=== PATIENT | male | born 1980 | race African-American/Black ===

== ENCOUNTER 2016-11-02 20:13 | Emergency (ER) | payer OTHER ==
[2016-11-02 20:29] VITALS: RESP 18
[2016-11-02] MEDS ORDERED: SODIUM CHLORIDE 0.9% 1,000 ML IV STA ×2 (20:41→22:07)
--- NOTE | 2016-11-02 20:45 | ED ---
General Adult HPI - General Chief complaint: Chest Pain Stated complaint: Back Pain Time Seen by Provider: 11/02/16 20:32 Source: patient, RN notes reviewed Mode of arrival: ambulatory Limitations: no limitations - History of Present Illness Initial comments: Patient 35-year-old male who presents emergency room today with a chief complaint of right-sided chest pain, back pain over the last 3 days. He does admit that is also been having some cramping sensation in his upper legs bilaterally. Patient states pain seems to be worse with certain movements. She is not tried anything for the pain so. Patient admits that he's had some hot and cold feelings. He states he was sweating last night. Patient admits that is also noticed some shortness breath at times over the last week. Patient denies any recent fever, chills, back pain, abdominal pain, nausea or vomiting, numbness or tingling, dysuria or hematuria, constipation or diarrhea, headaches or visual changes, or any other complaints. - Related Data Home Medications Medication Instructions Recorded Confirmed No Known Home Medications [No 11/02/16 11/02/16 Known Home Medications] Allergies Allergy/AdvReac Type Severity Reaction Status Date / Time No Known Allergies Allergy Verified 11/02/16 20:42 Review of Systems ROS Statement: Those systems with pertinent positive or pertinent negative responses have been documented in the HPI. ROS Other: All systems not noted in ROS Statement are negative. Past Medical History Past Medical History: Asthma Additional Past Medical History / Comment(s): sickle cell trait. History of Any Multi-Drug Resistant Organisms: None Reported Past Surgical History: Orthopedic Surgery Additional Past Surgical History / Comment(s): left hand Past Psychological History: No Psychological Hx Reported Smoking Status: Current every day smoker Past Alcohol Use History: None Reported Past Drug Use History: Marijuana General Exam - General Exam Comments Initial Comments: General: The patient is awake and alert, in no distress, and does not appear acutely ill. Eye: Pupils are equal, round and reactive to light, extra-ocular movements are intact. No nystagmus. There is normal conjunctiva bilaterally. No signs of icterus. Ears, nose, mouth and throat: There are moist mucous membranes and no oral lesions. Neck: The neck is supple, there is no tenderness or JVD. Cardiovascular: There is a regular rate and rhythm. No murmur, rub or gallop is appreciated. Pain is reproduced on palpation to the right side of the anterior chest wall Respiratory: Lungs are clear to auscultation, respirations are non-labored, breath sounds are equal. No wheezes, stridor, rales, or rhonchi. Gastrointestinal: Soft, non-distended, non-tender abdomen without masses or organomegaly noted. There is no rebound or guarding present. No CVA tenderness. Bowel sounds are unremarkable. Musculoskeletal: Normal ROM. Patient does have tenderness to palpation to the right posterior upper back. No tenderness over the midline spine. Strength 5/ 5. Sensation intact. Pulses equal bilaterally 2+. Neurological: A&O x 3. CN II-XII intact, There are no obvious motor or sensory deficits. Coordination appears grossly intact. Speech is normal. Skin: Skin is warm and dry and no rashes or lesions are noted. Psychiatric: Cooperative, appropriate mood & affect, normal judgment. Limitations: no limitations Course Vital Signs 11/02/16 11/02/16 20:24 21:27 Temperature 98.4 F Pulse Rate 109 H 96 Respiratory 18 18 Rate Blood Pressure 134/88 143/74 O2 Sat by Pulse 97 100 Oximetry EKG Findings - EKG Comments: EKG Findings:: EKG performed at 2048: A 12-lead EKG was performed and interpreted by me as showing the following: Rate is 97, and rhythm is normal sinus. There are normal QRS complexes and normal R-wave progression. ST segments have no elevation or depression, and TN segments appear normal. Medical Decision Making - Medical Decision Making Patient's labs reviewed shows CK greater than thousand. Patient's does have tenderness to the anterior chest wall reproduced on palpation. Patient denies any injury or trauma. Denies any lifting. Options were discussed with patient about admission to the hospital. States he does not want be admitted rather be discharged home. Patient is advised to increase oral fluids. Given a liter bolus here in the emergency room. Patient states he will return if symptoms increase or worsen. He is advised follow-up family doctor the next 2 days. Case discussed in detail with attending physician Dr. Cobb. - Lab Data Result diagrams: 11/02/16 20:46 11/02/16 20:46 Lab Results 11/02/16 11/02/16 11/02/16 Range/Units 20:46 20:46 20:46 WBC 6.2 (3.8-10.6) k/uL RBC 5.51 (4.30-5.90) m/uL Hgb 15.7 (13.0-17.5) gm/dL Hct 48.4 (39.0-53.0) % MCV 87.8 (80.0-100.0) fL MCH 28.5 (25.0-35.0) pg MCHC 32.5 (31.0-37.0) g/dL RDW 14.9 (11.5-15.5) % Plt Count 141 L (150-450) k/uL Neutrophils % 57 % Lymphocytes % 28 % Monocytes % 9 % Eosinophils % 4 % Basophils % 1 % Neutrophils # 3.5 (1.3-7.7) k/uL Lymphocytes # 1.7 (1.0-4.8) k/uL Monocytes # 0.6 (0-1.0) k/uL Eosinophils # 0.2 (0-0.7) k/uL Basophils # 0.0 (0-0.2) k/uL PT (9.0-12.0) sec INR (<1.2) APTT (22.0-30.0) sec D-Dimer (<0.60) mg/L FEU Sodium 140 (137-145) mmol/L Potassium 3.9 (3.5-5.1) mmol/L Chloride 107 (98-107) mmol/L Carbon Dioxide 23 (22-30) mmol/L Anion Gap 10 mmol/L BUN 16 (9-20) mg/dL Creatinine 0.77 (0.66-1.25) mg/dL Est GFR (MDRD) Af Amer >60 (>60 ml/min/1.73 sqM) Est GFR (MDRD) Non-Af >60 (>60 ml/min/1.73 sqM) Glucose 143 H (74-99) mg/dL Calcium 9.4 (8.4-10.2) mg/dL Total Bilirubin 0.4 (0.2-1.3) mg/dL AST 50 (17-59) U/L ALT 55 (21-72) U/L Alkaline Phosphatase 72 (38-126) U/L Total Creatine Kinase 1042 H (55-170) U/L CK-MB (CK-2) 5.3 H* (0.0-2.4) ng/mL CK-MB (CK-2) Rel Index 0.5 Troponin I <0.012 (0.000-0.034) ng/mL Total Protein 6.8 (6.3-8.2) g/dL Albumin 3.8 (3.5-5.0) g/dL 11/02/16 Range/Units 20:46 WBC (3.8-10.6) k/uL RBC (4.30-5.90) m/uL Hgb (13.0-17.5) gm/dL Hct (39.0-53.0) % MCV (80.0-100.0) fL MCH (25.0-35.0) pg MCHC (31.0-37.0) g/dL RDW (11.5-15.5) % Plt Count (150-450) k/uL Neutrophils % % Lymphocytes % % Monocytes % % Eosinophils % % Basophils % % Neutrophils # (1.3-7.7) k/uL Lymphocytes # (1.0-4.8) k/uL Monocytes # (0-1.0) k/uL Eosinophils # (0-0.7) k/uL Basophils # (0-0.2) k/uL PT 10.5 (9.0-12.0) sec INR 1.0 (<1.2) APTT 25.1 (22.0-30.0) sec D-Dimer 0.37 (<0.60) mg/L FEU Sodium (137-145) mmol/L Potassium (3.5-5.1) mmol/L Chloride (98-107) mmol/L Carbon Dioxide (22-30) mmol/L Anion Gap mmol/L BUN (9-20) mg/dL Creatinine (0.66-1.25) mg/dL Est GFR (MDRD) Af Amer (>60 ml/min/1.73 sqM) Est GFR (MDRD) Non-Af (>60 ml/min/1.73 sqM) Glucose (74-99) mg/dL Calcium (8.4-10.2) mg/dL Total Bilirubin (0.2-1.3) mg/dL AST (17-59) U/L ALT (21-72) U/L Alkaline Phosphatase (38-126) U/L Total Creatine Kinase (55-170) U/L CK-MB (CK-2) (0.0-2.4) ng/mL CK-MB (CK-2) Rel Index Troponin I (0.000-0.034) ng/mL Total Protein (6.3-8.2) g/dL Albumin (3.5-5.0) g/dL Disposition Clinical Impression: Elevated CK, Rhabdomyolysis Disposition: HOME SELF-CARE Condition: Good Instructions: Rhabdomyolysis (ED) Additional Instructions: Please increase oral fluids as discussed above the family doctor over the next 2 days. Strength is unsure if any symptoms increase or worsen or for any other concerns. Referrals: None,Stated [Primary Care Provider] - 1-2 days Lashaun Lockwood MD [REFERRING] - 1-2 days Reginald Rosales DO [STAFF PHYSICIAN] - 1-2 days Time of Disposition: 22:59
--- NOTE | 2016-11-02 21:38 | XR ---
EXAMINATION TYPE: XR chest 2V DATE OF EXAM: 11/02/2016 COMPARISON: 05/25/1712 HISTORY: Chest pain TECHNIQUE: Frontal and lateral views of the chest are obtained. FINDINGS: Heart and mediastinum are normal. Lungs are clear of infiltrate. There are chest leads. Di aphragm is normal. Bony thorax appears intact. IMPRESSION: There is a small area of subsegmental atelectasis in the anterior right middle lobe. Oth erwise negative chest x-ray exam..
[2016-11-02 21:45] LABS: Basophils % (A) 1 %; CH 29.9; CHCM 34.3; Eosinophils # (A) 0.2 k/uL (0-0.7); Eosinophils % (A) 4 %; HCT 48.4 % (39.0-53.0); HDW 2.29; HGB 15.7 gm/dL (13.0-17.5); Large Platelets Flag Marked; Luc % (Auto) 2; Lymphocytes # (A) 1.7 k/uL (1.0-4.8); Lymphocytes % (A) 28 %; MCH 28.5 pg (25.0-35.0); MCHC 32.5 g/dL (31.0-37.0); MCV 87.8 fL (80.0-100.0); Mean Platelet Volume 13.1; Monocytes # (A) 0.6 k/uL (0-1.0); Monocytes % (A) 9 %; Neutrophils # (A) 3.5 k/uL (1.3-7.7); Neutrophils % (A) 57 %; RBC 5.51 m/uL (4.30-5.90); RDW 14.9 % (11.5-15.5); WBC 6.2 k/uL (3.8-10.6); WBC (Perox) 6.46
[2016-11-02 21:59] LABS: Creatine Kinase 1042 U/L (55-170)
[2016-11-02 22:01] LABS: ALT 55 U/L (21-72); AST 50 U/L (17-59); Alkaline Phosphatase 72 U/L (38-126); Anion Gap 10 mmol/L; Blood Urea Nitrogen 16 mg/dL (9-20); Calcium 9.4 mg/dL (8.4-10.2); Carbon Dioxide 23 mmol/L (22-30); Chloride 107 mmol/L (98-107); Glucose 143 mg/dL (74-99); Non-African American GFR(MDRD) >60 (>60 ml/min/1.73 sqM); Potassium 3.9 mmol/L (3.5-5.1); Sodium 140 mmol/L (137-145); Total Bilirubin 0.4 mg/dL (0.2-1.3); Total Protein 6.8 g/dL (6.3-8.2)
[2016-11-02 22:07] LABS: Partial Thromboplastin Time 25.1 sec (22.0-30.0); Prothrombin Time 10.5 sec (9.0-12.0)
[2016-11-02 22:12] LABS: Troponin I <0.012 ng/mL (0.000-0.034)
[2016-11-02 22:16] LABS: Creatine Kinase MB 5.3 ng/mL (0.0-2.4)
[2016-11-02 23:53] VITALS: BP 131/84; PULSE 81; TEMP 98.1
== END 2016-11-03 | disposition home or self-care (01) ==
LOC: EC 20:13
DX: M62.82 Rhabdomyolysis (principal); R74.8 Abnormal levels of other serum enzymes; R07.9 Chest pain, unspecified; R06.02 Shortness of breath; M54.9 Dorsalgia, unspecified; F17.200 Nicotine dependence, unspecified, uncomplicated
CPT/HCPCS: 36415; 71020; 80053; 82550; 82553; 84484; 85025; 85379; 85610; 85730; 93005; 99285

== ENCOUNTER 2018-07-11 07:29 | Emergency (ER) | payer OTHER ==
[2018-07-11 07:35] VITALS: RESP 18
[2018-07-11] MEDS ORDERED: IPRATROPIUM-ALBUTEROL 3 ML NEB INHALATION STA (07:44)
--- NOTE | 2018-07-11 07:55 | ED ---
General Adult HPI - General Chief complaint: Upper Respiratory Infection Stated complaint: cough Time Seen by Provider: 07/11/18 07:35 Source: patient Mode of arrival: ambulatory Limitations: no limitations - History of Present Illness Initial comments: Patient is a 38-year-old male complaining of cough and atypical chest pain since yesterday. Admits to history of asthma. Admits to associated congestion, runny nose, and occasional shortness of breath with activity. Patient describes chest pain as burning when he is coughing but also is experiencing pain at rest in the sternum location. Patient denies history of heart disease. Patient denies fever, chills, ear pain, shortness of breath at rest, abdominal pain, n/v/d. - Related Data Previous Rx's Medication Instructions Recorded Albuterol Inhaler [Ventolin Hfa 1 - 2 puff INHALATION RT-Q6H PRN 07/11/18 Inhaler] 30 Days #1 inhaler Promethazine/Dextromethorphan 5 ml PO Q6H PRN 10 Days #200 ml 07/11/18 [Promethazine-Dm Solution] Allergies Allergy/AdvReac Type Severity Reaction Status Date / Time No Known Allergies Allergy Verified 07/11/18 08:22 Review of Systems ROS Statement: Those systems with pertinent positive or pertinent negative responses have been documented in the HPI. ROS Other: All systems not noted in ROS Statement are negative. Past Medical History Past Medical History: Asthma Additional Past Medical History / Comment(s): sickle cell trait. History of Any Multi-Drug Resistant Organisms: None Reported Past Surgical History: Orthopedic Surgery Additional Past Surgical History / Comment(s): left hand Past Psychological History: No Psychological Hx Reported Smoking Status: Current every day smoker Past Alcohol Use History: None Reported Past Drug Use History: Marijuana General Exam - General Exam Comments Initial Comments: GENERAL: Well-appearing, well-nourished and in no acute distress. Patient appears comfortable, talking on his phone. HEAD: Atraumatic, normocephalic. EYES: Pupils equal round and reactive to light, extraocular movements intact, sclera anicteric, conjunctiva are normal. ENT: TMs normal, nares patent, oropharynx clear without exudates. Moist mucous membranes. NECK: Normal range of motion, supple without lymphadenopathy or JVD. LUNGS: Breath sounds clear to auscultation bilaterally and equal. No wheezes rales or rhonchi. HEART: Regular rate and rhythm without murmurs, rubs or gallops. ABDOMEN: Soft, nontender, normoactive bowel sounds. No guarding, no rebound. No masses appreciated. : Deferred EXTREMITIES: Normal range of motion, no pitting or edema. No clubbing or cyanosis. NEUROLOGICAL: Cranial nerves II through XII grossly intact. Normal speech, normal gait. PSYCH: Normal mood, normal affect. SKIN: Warm, Dry, normal turgor, no rashes or lesions noted. Limitations: no limitations Course Vital Signs 07/11/18 07/11/18 07/11/18 07:31 07:52 08:00 Temperature 97.4 F L Pulse Rate 88 80 88 Respiratory 18 Rate Blood Pressure 126/85 O2 Sat by Pulse 97 Oximetry EKG Findings - EKG Comments: EKG Findings:: Normal sinus rhythm, ventricular rate 74, ME interval 132, QTC 428. No ST segment changes. EKG is similar to one in 2017. Medical Decision Making - Medical Decision Making Patient is a 38-year-old male complaining of cough and atypical chest pain 2 days. Patient has history of asthma. Exam is normal. EKG, chest x-ray show no acute changes. Patient discharged home with an inhaler and cough suppressant. Disposition Clinical Impression: Common cold, Upper respiratory infection Disposition: HOME SELF-CARE Condition: Stable Instructions (If sedation given, give patient instructions): Upper Respiratory Infection (ED) Additional Instructions: Please return to the Emergency Department if symptoms worsen or any other concerns. Follow-up with PCP if symptoms do not improve. Prescriptions: Promethazine/Dextromethorphan [Promethazine-Dm Solution] 5 ml PO Q6H PRN 10 Days #200 ml PRN Reason: Cough Albuterol Inhaler [Ventolin Hfa Inhaler] 1 - 2 puff INHALATION RT-Q6H PRN 30 Days #1 inhaler PRN Reason: Cough Is patient prescribed a controlled substance at d/c from ED?: No Referrals: None,Stated [Primary Care Provider] - 1-2 days
--- NOTE | 2018-07-11 08:17 | XR ---
EXAMINATION TYPE: XR chest 2V DATE OF EXAM: 07/11/2018 COMPARISON: 11/02/2016 HISTORY: Cough and chest pain with history of asthma TECHNIQUE: Frontal and lateral views of the chest are obtained. FINDINGS: There is no focal air space opacity, pleural effusion, or pneumothorax seen. The cardiac silhouette size is within normal limits. The osseous structures are intact. IMPRESSION: No acute cardiopulmonary process.
[2018-07-11 08:32] VITALS: BP 135/97; PULSE 82; TEMP 97.9
== END 2018-07-11 08:31 | disposition home or self-care (01) ==
LOC: EDBD → EC 07:29
DX: J06.9 Acute upper respiratory infection, unspecified (principal); R07.89 Other chest pain; J45.909 Unspecified asthma, uncomplicated; F17.200 Nicotine dependence, unspecified, uncomplicated
CPT/HCPCS: 71046; 93005; 94640; 99284

== ENCOUNTER 2018-09-03 08:06 | Emergency (ER) | payer OTHER ==
[2018-09-03] MEDS ORDERED: IPRATROPIUM-ALBUTEROL 3 ML NEB INHALATION STA (08:43)
--- NOTE | 2018-09-03 09:01 | XR ---
EXAMINATION TYPE: XR chest 2V DATE OF EXAM: 09/03/2018 COMPARISON: 07/11/2018 HISTORY: Cough and congestion for 3 days. TECHNIQUE: Frontal and lateral views of the chest are obtained. FINDINGS: There is no focal air space opacity, pleural effusion, or pneumothorax seen. The cardiac silhouette size is within normal limits. The osseous structures are intact. IMPRESSION: No acute cardiopulmonary process.
--- NOTE | 2018-09-03 09:16 | ED ---
URI HPI - General Chief Complaint: Upper Respiratory Infection Stated Complaint: Chest pain, MELISA Time Seen by Provider: 09/03/18 08:34 Source: patient, RN notes reviewed Mode of arrival: ambulatory Limitations: no limitations - History of Present Illness Initial Comments: This is a 38-year-old male presents emergency Department with chief complaint cough congestion chest discomfort. Patient states that he's been sick for last week or so states he has productive cough with yellow and green sputum states it hurts to cough is chest. Patient states he isn't asthmatic if he does not have a current inhaler. Patient states that he is a daily smoker. Patient states he has a history of sickle cell trait but no disease. Patient has no symptoms. Patient denies any headache, dizziness, no cardiac disease, pleuritic chest pain. Patient denies any nausea vomiting diarrhea constipation. Patient has not tried any [id number] cough and cold medications. - Related Data Previous Rx's Medication Instructions Recorded Albuterol Sulfate [Proair Hfa] 1 - 2 puff INHALATION Q4HR PRN #1 09/03/18 inhaler Azithromycin [Zithromax Z-pack] 0 mg PO DIRECTED #1 pack 09/03/18 predniSONE 50 mg PO DAILY #5 tab 09/03/18 Allergies Allergy/AdvReac Type Severity Reaction Status Date / Time No Known Allergies Allergy Verified 09/03/18 08:32 Review of Systems ROS Statement: Those systems with pertinent positive or pertinent negative responses have been documented in the HPI. ROS Other: All systems not noted in ROS Statement are negative. Past Medical History Past Medical History: Asthma Additional Past Medical History / Comment(s): sickle cell trait. History of Any Multi-Drug Resistant Organisms: None Reported Past Surgical History: Orthopedic Surgery Additional Past Surgical History / Comment(s): left hand Past Psychological History: Anxiety, Depression Smoking Status: Current every day smoker Past Alcohol Use History: None Reported Past Drug Use History: Marijuana General Exam Limitations: no limitations General appearance: alert, in no apparent distress Head exam: Present: atraumatic, normocephalic, normal inspection Eye exam: Present: normal appearance, PERRL, EOMI. Absent: scleral icterus, conjunctival injection, periorbital swelling ENT exam: Present: normal exam, normal oropharynx, mucous membranes moist, TM's normal bilaterally Neck exam: Present: normal inspection, full ROM. Absent: tenderness, meningismus, lymphadenopathy Respiratory exam: Present: normal lung sounds bilaterally, chest wall tenderness. Absent: respiratory distress, wheezes, rales, rhonchi, stridor Cardiovascular Exam: Present: regular rate, normal rhythm, normal heart sounds. Absent: systolic murmur, diastolic murmur, rubs, gallop, clicks GI/Abdominal exam: Present: soft, normal bowel sounds. Absent: distended, tenderness, guarding, rebound, rigid Neurological exam: Present: alert, oriented X3, CN II-XII intact Skin exam: Present: warm, dry, intact, normal color. Absent: rash Course Vital Signs 09/03/18 09/03/18 09/03/18 08:17 08:25 09:11 Temperature 97.9 F Pulse Rate 100 65 Pulse Rate [ 74 [employer] ] Respiratory 16 Rate Blood Pressure 137/88 O2 Sat by Pulse 98 Oximetry 09/03/18 09:21 Temperature Pulse Rate 67 Pulse Rate [ [employer] ] Respiratory Rate Blood Pressure O2 Sat by Pulse Oximetry Medical Decision Making - Medical Decision Making 38-year-old male presented for cough congestion chest tightness. Patient did have improvement after DuoNeb treatment. Patient has known asthmatic who continues to smoke. I counseled the patient for smoking cessation for greater than 3 minutes. Patient will be treated for asthmatic bronchitis. Patient will be given antibiotics steroids and inhaler. - EKG Data EKG Comments: EKG performed at 8:44 normal sinus rhythm with rate of 74 MS 138 QRS 84 QT/QTC 372/412 there is no acute changes from prior Disposition Clinical Impression: Asthmatic bronchitis Disposition: HOME SELF-CARE Condition: Stable Instructions (If sedation given, give patient instructions): Acute Bronchitis (ED) Additional Instructions: Please return to the Emergency Department if symptoms worsen or any other concerns. Prescriptions: predniSONE 50 mg PO DAILY #5 tab Albuterol Sulfate [Proair Hfa] 1 - 2 puff INHALATION Q4HR PRN #1 inhaler PRN Reason: difficulty in breathing Azithromycin [Zithromax Z-pack] 0 mg PO DIRECTED #1 pack Is patient prescribed a controlled substance at d/c from ED?: No Referrals: None,Stated [Primary Care Provider] - 1-2 days Time of Disposition: 09:38
[2018-09-03 10:06] VITALS: BP 142/85; PULSE 85; RESP 12; TEMP 98
== END 2018-09-03 09:55 | disposition home or self-care (01) ==
LOC: EC 08:06
DX: J45.909 Unspecified asthma, uncomplicated (principal); F17.200 Nicotine dependence, unspecified, uncomplicated; Z71.6 Tobacco abuse counseling
CPT/HCPCS: 71046; 93005; 94640; 99285; 99406

== ENCOUNTER 2019-04-08 12:04 | Observation (INO) | payer OTHER ==
--- NOTE | 2019-04-08 12:50 | ED ---
General Adult HPI - General Chief complaint: Psychiatric Symptoms Stated complaint: mental health Time Seen by Provider: 04/08/19 12:10 Source: patient, police, RN notes reviewed, old records reviewed Mode of arrival: EMS Limitations: no limitations - History of Present Illness Initial comments: This is a 38-year-old male who presents to the emergency department stating that he has been a little bit depressed lately and he took 2 of his Tylenol arthritis medications today and his girlfriend thought he might be trying to harm himself she called the police and according to him the story she told them it was completely fall. petitioned the patient stated that he was trying to overdose on his medications and that he held a utility knife to his neck patient denies all this and states that the girlfriend made this up. Patient states he is depressed but not suicidal and does not want harm himself. Patient states he's been worried that he might have cancer because he had some tests done recently is to follow-up with because they found some positive results. Recent states no one is exactly told him he has cancer. Patient denies any physical complaints today. Patient denies any chest pain difficult breathing shortness of breath per patient is a fever chills per patient denies abdominal pain patient denies nausea vomiting diarrhea. Patient states he only took 2 pills which were scheduled to be taken at that time. Patient states he took the 2 Tylenol at 10:00 this morning - Related Data Home Medications Medication Instructions Recorded Confirmed Acetaminophen [Tylenol Arthritis] 1,300 mg PO Q8H PRN 04/08/19 04/08/19 Famotidine [Pepcid] 20 mg PO HS 04/08/19 04/08/19 Allergies Allergy/AdvReac Type Severity Reaction Status Date / Time No Known Allergies Allergy Verified 04/08/19 13:49 Review of Systems ROS Statement: Those systems with pertinent positive or pertinent negative responses have been documented in the HPI. ROS Other: All systems not noted in ROS Statement are negative. Past Medical History Past Medical History: Asthma Additional Past Medical History / Comment(s): sickle cell trait. History of Any Multi-Drug Resistant Organisms: None Reported Past Surgical History: Orthopedic Surgery Additional Past Surgical History / Comment(s): left hand Past Psychological History: Anxiety, Depression Smoking Status: Current every day smoker Past Alcohol Use History: None Reported Past Drug Use History: Marijuana General Exam - General Exam Comments Initial Comments: GENERAL: Patient is well-developed and well-nourished. Patient is nontoxic and well-hydrated and is in no acute distress. ENT: Neck is soft and supple. No significant lymphadenopathy is noted. EYES: The sclera were anicteric and conjunctiva were pink and moist. Extraocular movements were intact and pupils were equal round and reactive to light. Eyelids were unremarkable. PULMONARY: Unlabored respirations. Good breath sounds bilaterally. No audible rales rhonchi or wheezing was noted. CARDIOVASCULAR: There is a regular rate and rhythm without any murmurs gallops or rubs. ABDOMEN: Soft and nontender with normal bowel sounds. SKIN: Skin is clear with no lesions or rashes and otherwise unremarkable. NEUROLOGIC: Patient is alert and oriented x3. Cranial nerves II through XII are grossly intact. MUSCULOSKELETAL: Normal extremities with adequate strength and full range of motion. LYMPHATICS: No significant lymphadenopathy is noted PSYCHIATRIC: Patient states he is depressed but is not suicidal. Patient states he only took 2 pills a made no attempt to overdose. Patient states he never held a knife to his neck. Limitations: no limitations Course Vital Signs 04/08/19 04/08/19 12:08 13:12 Temperature 97.3 F L Pulse Rate 64 Respiratory 18 18 Rate Blood Pressure 150/96 O2 Sat by Pulse 100 Oximetry Procedures - Restraint - Face to Face Restraint Occurrence 1 Patient's Immediate Situation: Endangers self safety, Endangers others' safety, Endangers staff safety Patient's Reaction to the Intervention: Uncooperative, Depressed, Hostile, Aggressive, Combative Patient's Medical & Behavioral Condition: Awake, Alert Need to Continue or Terminate Restraint or Seclusion: Continue Face to Face Eval of Restraint Date: 04/08/19 Face to Face Eval of Restraint Time: 15:45 Medical Decision Making - Medical Decision Making Patient's 4 hour Tylenol level was 145. Because patient was dishonest with us until she only took 2 pills and insisted he did not take any more than 2 pills I could not trust his history fully so since he was on the borderline of needing treatment which is a level of 150 I decided to treat the patient for his own safety. I discussed this with the gravure press operator downtown and she was in agreement that with an inconsistent history and the level back close to toxicity she agreed to treatment was stokes. I told the patient this he refused to stay and tried to leave at which point in time we called a strong man and had to restrain the patient because he was refusing to stay I spoke with some physician they agreed to admit the patient admitted the patient wrote admitting orders. - Lab Data Result diagrams: 04/08/19 14:29 04/08/19 14:29 Lab Results 04/08/19 04/08/19 04/08/19 Range/Units 12:58 14:29 14:29 WBC 4.3 (3.8-10.6) k/uL RBC 5.96 H (4.30-5.90) m/uL Hgb 16.9 (13.0-17.5) gm/dL Hct 50.7 (39.0-53.0) % MCV 85.0 (80.0-100.0) fL MCH 28.4 (25.0-35.0) pg MCHC 33.4 (31.0-37.0) g/dL RDW 13.6 (11.5-15.5) % Plt Count 156 (150-450) k/uL Neutrophils % 54 % Lymphocytes % 33 % Monocytes % 8 % Eosinophils % 1 % Basophils % 1 % Neutrophils # 2.3 (1.3-7.7) k/uL Lymphocytes # 1.4 (1.0-4.8) k/uL Monocytes # 0.3 (0-1.0) k/uL Eosinophils # 0.0 (0-0.7) k/uL Basophils # 0.0 (0-0.2) k/uL Manual Slide Review Performed Large Platelets Present RBC Morphology Normal PT 10.7 (9.0-12.0) sec INR 1.0 (<1.2) APTT 24.8 (22.0-30.0) sec Sodium (137-145) mmol/L Potassium (3.5-5.1) mmol/L Chloride (98-107) mmol/L Carbon Dioxide (22-30) mmol/L Anion Gap mmol/L BUN (9-20) mg/dL Creatinine (0.66-1.25) mg/dL Est GFR (CKD-EPI)AfAm (>60 ml/min/1.73 sqM) Est GFR (CKD-EPI)NonAf (>60 ml/min/1.73 sqM) Glucose (74-99) mg/dL Calcium (8.4-10.2) mg/dL Total Bilirubin (0.2-1.3) mg/dL AST (17-59) U/L ALT (4-49) U/L Alkaline Phosphatase (38-126) U/L Total Protein (6.3-8.2) g/dL Albumin (3.5-5.0) g/dL Salicylates 1.2 mg/dL Acetaminophen 161.4 H* ug/mL 04/08/19 Range/Units 14:29 WBC (3.8-10.6) k/uL RBC (4.30-5.90) m/uL Hgb (13.0-17.5) gm/dL Hct (39.0-53.0) % MCV (80.0-100.0) fL MCH (25.0-35.0) pg MCHC (31.0-37.0) g/dL RDW (11.5-15.5) % Plt Count (150-450) k/uL Neutrophils % % Lymphocytes % % Monocytes % % Eosinophils % % Basophils % % Neutrophils # (1.3-7.7) k/uL Lymphocytes # (1.0-4.8) k/uL Monocytes # (0-1.0) k/uL Eosinophils # (0-0.7) k/uL Basophils # (0-0.2) k/uL Manual Slide Review Large Platelets RBC Morphology PT (9.0-12.0) sec INR (<1.2) APTT (22.0-30.0) sec Sodium 141 (137-145) mmol/L Potassium 4.3 (3.5-5.1) mmol/L Chloride 110 H (98-107) mmol/L Carbon Dioxide 20 L (22-30) mmol/L Anion Gap 11 mmol/L BUN 17 (9-20) mg/dL Creatinine 0.64 L (0.66-1.25) mg/dL Est GFR (CKD-EPI)AfAm >90 (>60 ml/min/1.73 sqM) Est GFR (CKD-EPI)NonAf >90 (>60 ml/min/1.73 sqM) Glucose 115 H (74-99) mg/dL Calcium 9.3 (8.4-10.2) mg/dL Total Bilirubin 0.5 (0.2-1.3) mg/dL AST 29 (17-59) U/L ALT 27 (4-49) U/L Alkaline Phosphatase 76 (38-126) U/L Total Protein 7.2 (6.3-8.2) g/dL Albumin 4.2 (3.5-5.0) g/dL Salicylates mg/dL Acetaminophen 145.0 H* ug/mL Critical Care Time Critical Care Time: Yes Total Critical Care Time: 35 Disposition Clinical Impression: Tylenol overdose, Suicide attempt Disposition: ADMITTED IP TO THIS HOSP Referrals: None,Stated [Primary Care Provider] - 1-2 days
[2019-04-08 13:26] LABS: Salicylate 1.2 mg/dL
[2019-04-08 13:35] LABS: Acetaminophen 161.4 ug/mL
[2019-04-08 14:45] LABS: Basophils % (A) 1 %; Eosinophils % (A) 1 %; HCT 50.7 % (39.0-53.0); HGB 16.9 gm/dL (13.0-17.5); Lymphocytes # (A) 1.4 k/uL (1.0-4.8); Lymphocytes % (A) 33 %; MCH 28.4 pg (25.0-35.0); MCHC 33.4 g/dL (31.0-37.0); Mean Platelet Volume 13.6; Monocytes # (A) 0.3 k/uL (0-1.0); Monocytes % (A) 8 %; Neutrophils # (A) 2.3 k/uL (1.3-7.7); Neutrophils % (A) 54 %; Platelet Count 156 k/uL (150-450); RBC 5.96 m/uL (4.30-5.90); RDW 13.6 % (11.5-15.5); WBC 4.3 k/uL (3.8-10.6)
[2019-04-08 14:47] LABS: ALT 27 U/L (4-49); AST 29 U/L (17-59); African American GFR (CKD) >90 (>60 ml/min/1.73 sqM); Albumin 4.2 g/dL (3.5-5.0); Alkaline Phosphatase 76 U/L (38-126); Anion Gap 11 mmol/L; Blood Urea Nitrogen 17 mg/dL (9-20); Calcium 9.3 mg/dL (8.4-10.2); Carbon Dioxide 20 mmol/L (22-30); Chloride 110 mmol/L (98-107); Glucose 115 mg/dL (74-99); Non-African American GFR(CKD) >90 (>60 ml/min/1.73 sqM); Potassium 4.3 mmol/L (3.5-5.1); Sodium 141 mmol/L (137-145); Total Bilirubin 0.5 mg/dL (0.2-1.3); Total Protein 7.2 g/dL (6.3-8.2)
[2019-04-08 14:55] LABS: Partial Thromboplastin Time 24.8 sec (22.0-30.0); Prothrombin Time 10.7 sec (9.0-12.0)
[2019-04-08 14:57] LABS: Large Platelets Present
[2019-04-08] MEDS ORDERED: ZIPRASIDONE 20 MG VIAL IM STA (15:44)
[2019-04-08] MEDS ORDERED: LORazepam 2 MG/ML INJ IV STA (15:44)
[2019-04-08] MEDS ORDERED: LORazepam 2 MG/ML INJ IM STA (15:46)
[2019-04-08] MEDS ORDERED: ACETYLCYSTEINE IV 11,000 MG in DEXTROSE 5% IN WATER 200 ML IV ONE ×2 (16:00)
[2019-04-08] MEDS ORDERED: DEXTROSE 5% IV ONE ×4 (17:00→22:30)
[2019-04-08] MEDS ORDERED: ACETYLCYSTEINE IV ONE ×4 (17:00→22:30)
[2019-04-08] MEDS ORDERED: WATER IV ONE ×4 (17:00→22:30)
[2019-04-08] MEDS ORDERED: NALOXONE 0.4 MG/ML 1 ML VIAL IV PRN (17:06)
--- NOTE | 2019-04-08 17:10 | P.HPIM ---
History of Present Illness H&P Date: 04/08/19 Chief Complaint: Overdose Patient is currently sedated and under petition for admission. Majority of history was obtained from the chart. 38-year-old male with PMH of asthma, anxiety and depression was brought to the ED by his girlfriend for worsening depression and the possibility of overdose of medications. Apparently, patient held a utility knife to his neck and thr eatened to kill himself. Patient denied any of these actions while in the ED. Apparently, patient reported taking 2 Tylenol tablets around 10 in the morning. In the ED, his vital signs were stable except BP of 150/96. CBC was unremarkable. Coagulation panel was negative. CMP showed chloride of 110, bicarbonate 20, creatinine 0.64, glucose 115. Tylenol level on admission was 161.4 and 145 on repeat. When patient was told he could not leave the ED he became very irate, physically and verbally threatening. He received Ativan along with Geodon and is currently sedated. Patient is admitted for overdose of Tylenol and suicidal ideation with psychiatry on consultation. Review of Systems Pertinent positives and negatives as discussed in HPI, a complete review of systems was performed and all other systems are negative. Past Medical History Past Medical History: Asthma Additional Past Medical History / Comment(s): sickle cell trait. History of Any Multi-Drug Resistant Organisms: None Reported Past Surgical History: Orthopedic Surgery Additional Past Surgical History / Comment(s): left hand Past Psychological History: Anxiety, Depression Smoking Status: Current every day smoker Past Alcohol Use History: None Reported Past Drug Use History: Marijuana Medications and Allergies Home Medications Medication Instructions Recorded Confirmed Type Acetaminophen [Tylenol Arthritis] 1,300 mg PO Q8H PRN 04/08/19 04/08/19 History Famotidine [Pepcid] 20 mg PO HS 04/08/19 04/08/19 History Allergies Allergy/AdvReac Type Severity Reaction Status Date / Time No Known Allergies Allergy Verified 04/08/19 13:49 Physical Exam Vitals: Vital Signs Temp Pulse Resp BP Pulse Ox 04/08/19 13:12 18 04/08/19 12:08 97.3 F L 64 18 150/96 100 Intake and Output 04/08/19 04/08/19 04/08/19 06:59 14:59 22:59 Other: Weight 73.482 kg General: [Sedated on 4 point restraints] Derm: [warm], [dry] Head: [atraumatic], [normocephalic], [symmetric] Eyes: [no lid lag], [anicteric sclera] Ext: [no gross muscle atrophy], [no edema], [no contractures] Psych: [Sedated on 4 point restraints] Results CBC & Chem 7: 04/08/19 14:29 04/08/19 14:29 Labs: Abnormal Lab Results - Last 24 Hours (Table) 04/08/19 04/08/19 04/08/19 Range/Units 12:58 14:29 14:29 RBC 5.96 H (4.30-5.90) m/uL Chloride 110 H (98-107) mmol/L Carbon Dioxide 20 L (22-30) mmol/L Creatinine 0.64 L (0.66-1.25) mg/dL Glucose 115 H (74-99) mg/dL Acetaminophen 161.4 H* 145.0 H* ug/mL Assessment and Plan Assessment: Acetaminophen toxicity Suicidal ideation with overdose attempt Elevated BP Hyperchloremic metabolic acidosis Patient's Tylenol level was 161.4 on admission and 145 around 2:15 PM. Patient will be started on an acetylcysteine IV and acetaminophen level will be checked in 4 hours. Patient will be placed on telemetry monitoring. Patient is currently under petition and is on 4 point restraints. He is on suicidal precautions and one-to-one sitter will be ordered. Psychiatry has been consulted. His current blood pressure is 150/96 which will be monitored overnight and antihypertensive medication will be initiated if necessary. Patient has slightly elevated chloride of 110 and is acidotic with bicarbonate of 20. This could be related to his Tylenol ingestion. He will be started on normal saline at 100 mL per hour. Repeat CMP has been ordered for tomorrow morning. DVT prophylaxis: [SCD boots] Discussed with: [Patient] Anticipated discharge: [2 days] Anticipated discharge place: [Home versus inpatient psych] A total of [35] minutes was spent on the care of this complex patient more than 50% of the time was spent in counseling and care coordination. Patient will be placed full code at this time.
[2019-04-08] MEDS: SODIUM CHLORIDE 0.9% 1,000 ML IV SCH (21:48)
[2019-04-09] MEDS: SODIUM CHLORIDE 0.9% 1,000 ML IV SCH ×2 (06:18→08:53)
[2019-04-09 06:53] LABS: ALT 108 U/L (4-49); AST 92 U/L (17-59); African American GFR (CKD) >90 (>60 ml/min/1.73 sqM); Albumin 3.2 g/dL (3.5-5.0); Alkaline Phosphatase 55 U/L (38-126); Anion Gap 10 mmol/L; Blood Urea Nitrogen 11 mg/dL (9-20); Calcium 8.8 mg/dL (8.4-10.2); Carbon Dioxide 18 mmol/L (22-30); Chloride 110 mmol/L (98-107); Glucose 97 mg/dL (74-99); Non-African American GFR(CKD) >90 (>60 ml/min/1.73 sqM); Potassium 4.1 mmol/L (3.5-5.1); Sodium 138 mmol/L (137-145); Total Bilirubin 0.9 mg/dL (0.2-1.3); Total Protein 6.1 g/dL (6.3-8.2)
[2019-04-09 08:57] VITALS: BP 116/66; PULSE 63; RESP 18; TEMP 98
[2019-04-09 13:40] LABS: Acetaminophen <10.0 ug/mL; African American GFR (CKD) >90 (>60 ml/min/1.73 sqM); Anion Gap 6 mmol/L; Blood Urea Nitrogen 8 mg/dL (9-20); Calcium 8.7 mg/dL (8.4-10.2); Carbon Dioxide 22 mmol/L (22-30); Chloride 109 mmol/L (98-107); Glucose 97 mg/dL (74-99); Non-African American GFR(CKD) >90 (>60 ml/min/1.73 sqM); Potassium 3.7 mmol/L (3.5-5.1); Sodium 137 mmol/L (137-145)
--- NOTE | 2019-04-09 13:52 | P.DS ---
Providers Date of admission: 04/08/19 16:40 Expected date of discharge: 04/09/19 Attending physician: Johnnie Foy MD Consults: 04/08/19 16:37 Consult Physician Stat Consulting Provider: Sandeep Kiran Consult Reason/Comments: Suicide attempt Do you want consulting provider notified?: Yes 04/08/19 21:27 Consult Physician Stat Consulting Provider: Sandeep Kiran Consult Reason/Comments: Suicide Attempt Do you want consulting provider notified?: Yes Primary care physician: Stated None Hospital Course: Patient is currently sedated and under petition for admission. Majority of history was obtained from the chart. 38-year-old male with PMH of asthma, anxiety and depression was brought to the ED by his girlfriend for worsening depression and the possibility of overdose of medications. Apparently, patient held a utility knife to his neck and threatened to kill himself. Patient denied any of these actions while in the ED. Apparently, patient reported taking 2 Tylenol tablets around 10 in the morning. In the ED, his vital signs were stable except BP of 150/96. CBC was unremarkable. Coagulation panel was negative. CMP showed chloride of 110, bicarbonate 20, creatinine 0.64, glucose 115. Tylenol level on admission was 161.4 and 145 on repeat. When patient was told he could not leave the ED he became very irate, physically and verbally threatening. He received Ativan along with Geodon and is currently sedated. Patient is admitted for overdose of Tylenol and suicidal ideation with psychiatry on consultation. Patient was started on an acetylcysteine IV. Repeat Tylenol level was negative 2. Psychiatry was consulted for his suicidal attempt. One-to-one sitter was ordered. Psychiatry recommended inpatient admission. Patient was seen and examined. No acute events overnight. Patient denies any symptoms. He denies any suicidal or homicidal ideation. States that he just wants to go to work. He denies any chest pain, shortness of breath or palpitations. No nausea or vomiting. No fever or chills. General: [non toxic], [no distress], [appears at stated age] Derm: [warm], [dry] Head: [atraumatic], [normocephalic], [symmetric] Eyes: [EOMI], [no lid lag], [anicteric sclera] Mouth: [no lip lesion], [mucus membranes moist] Cardiovascular: [S1S2 reg], [no murmur], [positive DP pulse bilateral], Lungs: [CTA bilateral], [no rhonchi, no rales] , [no accessory muscle use] Abdominal: [soft], [ nontender to palpation], [no guarding], [no appreciable organomegaly] Ext: [no gross muscle atrophy], [no edema], [no contractures] Neuro: [no focal neuro deficits] Psych: [Alert], [oriented], [appropriate affect] Acetaminophen toxicity Suicidal ideation with overdose attempt Patient's Tylenol level was 161.4 on admission and 145 around 2:15 PM. Patient will be started on an acetylcysteine IV and acetaminophen level was negative on recheck 2. He is on suicidal precautions and one-to-one sitter will be ordered. Psychiatry has been consulted and recommends inpatient admission. The case was discussed with a psychiatrist. His current blood pressure is 116/66 within normal limits. Patient has slightly elevated chloride of 110 and is acidotic with bicarbonate of 20 on admission. His acidemia has resolved and hyperchloremia has improved. Patient is to be discharged today to inpatient p sychiatry. This complex discharge took about 35 minutes to complete. Patient Condition at Discharge: Stable Plan - Discharge Summary Discharge Rx Participant: No New Discharge Prescriptions: Continue Famotidine [Pepcid] 20 mg PO HS Discontinued Acetaminophen [Tylenol Arthritis] 1,300 mg PO Q8H PRN PRN Reason: Pain Discharge Medication List Famotidine [Pepcid] 20 mg PO HS 04/08/19 [History] Follow up Appointment(s)/Referral(s): None,Stated [Primary Care Provider] - 1-2 days Activity/Diet/Wound Care/Special Instructions: Diet: Regular Discharge Disposition: TRANSFER TO PSYCH HOSP/UNIT
--- NOTE | 2019-04-09 13:52 | P.CN ---
Psychiatric Consult - . Consult date: 04/09/19 Consult:: IDENTIFYING DATA: He is a 38-year-old -Armenian male admitted to medicine service for evaluation of a suicide attempt by overdose of acetaminophen. HISTORY OF PRESENT ILLNESS: The police completed a Petition for hospitalization that read "Davis's girlfriend stated that he is recently diagnosed with cancer and was depressed. Today he took an unknown amount of his medicine and she was able to get the bottle away from him. He then grabbed a utility knife and put it to his wrist and neck saying that he was going to anyway and that no one cares. Also that he had a roof cement and paint maker helper knife and grabbed at his stomach saying that he wanted to ." His serum acetaminophen level peaked at 161.4. I reviewed the medical record, interviewed the patient and spoke with his girlfriend, Alina Sweeney, on the telephone. He minimizes circumstances that led to this hospitalization. He denied that he attempted to overdose on Tylenol. He denied that he attempted to cut his wrist, cut his wrists or stab himself in the stomach. He complained that his girlfriend and his "baby momma" were overreacting to his distress. He apparently received a telephone call from [employer] requesting further tests to rule out cancer. He became distressed by this telephone call because his mother and uncle both from cancer. He specifically denied that he was considering suicide or had attempted suicide. His girlfriend stated that he was distraught yesterday after a telephone call from Davy [employer]pe. He stated that he began taking extra doses of "his medicine" (Tylenol) and she could not redirect him. She eventually took the bottle from him and flushed the medicine. She also confirmed that she took his utility knife and acted as though he were to cut his wrists. She took the knife from him. Before before the police arrived he then grabbed a roof cement and paint maker helper knife and gestured as though he were to cut his wrist and talked about stabbing himself in the stomach. She confirmed that he made a statement that he "might as well anyway's". PAST PSYCHIATRIC HISTORY: He denied a history of mental health treatment or psychiatric hospitalizations. He denied prior suicide attempts or gestures.. PAST MEDICAL HISTORY: Asthma, sickle cell trait. ALLERGIES: NO KNOWN DRUG ALLERGIES. SUBSTANCE USE HISTORY: He smokes marijuana but denied use of other drugs to get high, help him sleep or changes mood. He denied a family or friends have complained about his marijuana or alcohol use. He denied participation in a substance abuse treatment program.. FAMILY PSYCHIATRIC/SUBSTANCE USE HISTORY: He is unaware of family history of psychiatric or mental health problems. SOCIAL HISTORY: He was born in [place] and raised by his mother. She when he was 13 years old. He was then raised by an aunt. He is currently from his . He has 4 children from 3 different women. He had no children from his . The children range in age from 3 years to 18 years. All are with their mothers. He is currently living with his girlfriend. He works in a [employer] full-time.. MENTAL STATUS EXAM: He presented as a casually groomed -Armenian male who is laying In bed. He made eye contact and attended the interview. He had no distinguishing features or prominent physical abnormalities. He had an anxious facial expression. He was sweating during interview. He was alert and oriented to person, place and time. He showed no abnormality of psychomotor activity. I did not evaluate his gait. His speech was spontaneous with normal rate, rhythm and volume. His affect was anxious. He denied suicidal ideation, wishes or homicidal ideation. He did not express feelings of hopelessness, helplessness and worthlessness. He ruminated about the circumstances led to this hospitalization and perseverated on discharge and the need to return to work this afternoon. He did not express ideas reference, paranoid ideation or delusions. His testing was abstract and associations were coherent and logical. He denied hallucinations and did not appear to be responding to internal stimuli. IMPRESSIONS: He is a 38-year-old -Armenian male brought to the hospital involuntarily by the police crime scene technician completed a Petition for hospitalization. He came is currently distraught on the day of admission and appeared to have attempted to overdose on acetaminophen. His serum acetaminophen level was in the near toxic range. The police report and his girlfriend confirms that he gestured as though he were to cut his wrist, stab himself and throat and stab himself in his stomach. He denied that his actions were intended to end his life. He denied that he had overdosed on medications or gestured with a knife. Considering the circumstances he would best be trans ferred to the inpatient unit for further evaluation. DIAGNOSIS: Suicide gesture, adjustment disorder with disturbance of mood and behavior, rule out depressive disorder, rule out major depressive disorder, rule out cannabis use disorder PLAN: Continue one-to-one. Transfer to psychiatric unit when medically stable.. 04/09/19 13:37
[2019-04-09 13:54] LABS: INR 1.3 (<1.2); Prothrombin Time 13.2 sec (9.0-12.0)
[2019-04-09] MEDS ORDERED: LORazepam 2 MG/ML INJ IM STA (15:22)
[2019-04-09] MEDS ORDERED: ZIPRASIDONE 20 MG VIAL IM STA (15:22)
== END 2019-04-09 15:59 ==
LOC: EC 12:04 → 3SCARD 16:40 → INTOOBSV 16:40 → 3SCARD 21:06 → UNDODISIN 04-09 15:59
PROVIDERS: ADMIT Family Medicine; ATTEND Family Medicine
DX: T39.1X2A Poisoning by 4-Aminophenol derivatives, intentional self-harm, initial encounter (principal); E87.2 Acidosis; R03.0 Elevated blood-pressure reading, without diagnosis of hypertension; E87.8 Other disorders of electrolyte and fluid balance, not elsewhere classified; J45.909 Unspecified asthma, uncomplicated; F41.9 Anxiety disorder, unspecified; F32.9 Major depressive disorder, single episode, unspecified; D57.3 Sickle-cell trait; F17.200 Nicotine dependence, unspecified, uncomplicated; Z78.1 Physical restraint status; Z98.890 Other specified postprocedural states; Z79.899 Other long term (current) drug therapy
CPT/HCPCS: 96366 ×2; 82075; 96365; 96372; 99291; 36415; 80053 ×2; 85025; 85610 ×2; 85730; 83520; G0378 ×2; G0480 ×2; J2060; J3486; J0132; 80048; 80329

== ENCOUNTER 2019-04-09 16:09 | Inpatient (IN) | payer MEDICAID ==
[2019-04-09] MEDS ORDERED: MAG HYDROX/AL HYDROX/SIMETH 30 ML CUP PO PRN (16:17)
[2019-04-09] MEDS ORDERED: LORazepam 1 MG TAB PO PRN (16:17)
[2019-04-09] MEDS ORDERED: ZIPRASIDONE 20 MG VIAL IM PRN (16:17)
[2019-04-09] MEDS ORDERED: MAGNESIUM HYDROXIDE 2,400 MG/10 ML CUP PO PRN (16:17)
[2019-04-09 16:46] VITALS: RESP 16
[2019-04-09] MEDS ORDERED: FAMOTIDINE 20 MG TAB PO SCH (21:00)
[2019-04-10 06:01] VITALS: PULSE 71
[2019-04-10] MEDS ORDERED: NICOTINE 14MG/24HR PATCH TRANSDERM SCH (09:00)
[2019-04-10 12:10] LABS: ALT 402 U/L (4-49); AST 267 U/L (17-59); African American GFR (CKD) >90 (>60 ml/min/1.73 sqM); Alkaline Phosphatase 69 U/L (38-126); Anion Gap 7 mmol/L; Blood Urea Nitrogen 10 mg/dL (9-20); Carbon Dioxide 26 mmol/L (22-30); Chloride 103 mmol/L (98-107); Glucose 117 mg/dL (74-99); Non-African American GFR(CKD) >90 (>60 ml/min/1.73 sqM); Potassium 3.7 mmol/L (3.5-5.1); Sodium 136 mmol/L (137-145); Total Protein 6.9 g/dL (6.3-8.2)
--- NOTE | 2019-04-10 12:16 | P.HP ---
Psychiatric H&P - . H&P Date: 04/10/19 History & Physical: IDENTIFYING DATA: He is a 38-year-old -[place] male transferred to psychiatry from medicine service with a recent history of a acetaminophen overdose HISTORY OF PRESENT ILLNESS: He presented to Hospital involuntarily and a training and development officer completed a Petition for hospitalization that read "Davis's girlfriend stated that he is recently diagnosed with cancer and was depressed. Today, he took an unknown amount of this medicine and she was able to get the bottle away from him. He then grabbed a utility knife and put it to his wrist and neck saying that he was going to anyway; no one cares. Also that he had a professor of management knife and grabbed at his stomach saying that he wanted to ." His serum acetaminophen level peaked at 161.4. He was treated on medicine service for acute acetaminophen overdose with an N-acetylcytosine. He continues to deny that he attempted overdose with Tylenol. He also denied that he attempted to cut his wrist, cut his neck or step himself in the stomach. He feels that his girlfriend and "baby momma" overreacted to his distress. He apparently received a telephone call from [facility] requesting further tests to rule out liver cancer. He became distressed after this telephone call complaining that his mother and uncle both from cancer. He specifically denied that he was considering suicide or had attempted suicide. I spoke with his girlfriend yesterday and she confirmed the allegations in the Petition. She stated that he was taking "extra doses of Tylenol, could not redirect him and eventually took the medication from him and flushed the pills down the toilet. She also confirmed that he took a utility knife in a professor of management knife ingestion as though he were cutting or stabbing himself. A repeat liver function tests from yesterday showed upward trend of AST and ALT. The PT and INR were also elevated (13.2 and 1.3 respectively). Poison control called the unit and recommended follow-up on his ALT and AST as they were trending up. They also recommended that he take oral NAC to lower ALT and AST. He currently denies feeling depressed or having thoughts of or suicide. He voices regret for his action but again talked about his distress after receiving a telephone call. She denied persistent anxiety that he is unable to control. He denied periods of elevated anxiety consistent with panic attack denied obsessions or compulsions. He denied experiencing periods of elevated mood or sustained irritability consistent with luciana or hypomania. He denied such psychotic symptoms as hallucinations, paranoia or confusion. He smokes marijuana but denied use of other drugs get high, help him sleep or change her mood. He alleged that he consumes ALCOHOL infrequently. PAST PSYCHIATRIC HISTORY: He denied history of mental health treatment or psychiatric hospitalizations. He denied prior psych suicide attempts or gestures. PAST MEDICAL HISTORY: Asthma, sickle cell trait ALLERGIES: NO KNOWN DRUG ALLERGIES SUBSTANCE USE HISTORY: Smokes marijuana but denied use of other drugs to get high, help him sleep or changes mood. He denied that friends or family have complained about his marijuana or alcohol use. He denied that he is partici pating in substance abuse treatment programs. FAMILY PSYCHIATRIC/SUBSTANCE USE HISTORY: He is unaware of family history of psychiatric or mental health problems. LEGAL HISTORY: Denied SOCIAL HISTORY: His born in [place] and raised by his mother. She when he was 13 years old. He was then raised by his aunt. He is currently from his . He has 4 children from 3 different women. He had no children with his . The children range in age from 3-18 years old. All live with their mothers. His currently was living with his girlfriend 2 months. He is employed full-time in a plastics factory. MENTAL STATUS EXAM: He presented as a casually groomed -[place] male who was pleasant on approach. He made eye contact and attended the interview. He had no distinguishing features or prominent physical abnormalities. He had an anxious facial expression. He was alert and oriented to person, place and time. He showed no abnormality of psychomotor activity. He had a normal gait and station. His speech was spontaneous with normal rate, rhythm and volume. His affect was anxious. He denied suicidal ideation, wishes or homicidal ideation. He did not express feelings of hopelessness, helplessness and worthlessness. He He did not ruminate or perseverated about circumstances that led to this hospitalization. He did not express ideas reference, paranoid ideation or delusions. His testing was abstract and associations were coherent and logical. He denied hallucinations and did not appear to be responding to internal stimuli. STRENGTHS: Stable housing, stable employment, supportive family WEAKNESSES: Recent change in his physical health IMPRESSION: This 38-year-old -[place] male who presented to Hospital involuntarily following with a recent history of suicide attempt and/or gesture. He is admitted to the medicine for treatment of acute acetaminophen overdose. The serum acetaminophen level was in a toxic range and he showing a number trend of their function tests. The suicide gestures in reported overdose related to concerns about his physical health. He denied history of persistent depression, anxiety or substance use issues. He should she had inpatient basis with combination of psychopharmacology and multimodal therapy. Consult medicine for management of the acetaminophen poisoning. PRINCIPLE DIAGNOSIS: Intentional overdose of acetaminophen, adult adjustment disorder with disturbance of mood and conduct, rule out depressive disorder, rule out personality disorder, cannabis use disorder RECOMMENDATION: Admit to the psychiatric unit. Safety precautions. Consult medicine for initial physical exam and medical history and management of the acetaminophen overdose. Hold psychotropic medications due to the elevation of her liver function tests. Encourage participation in therapeutic groups and activities. Evaluate clinical status response to treatment daily basis. Allergies Allergy/AdvReac Type Severity Reaction Status Date / Time No Known Allergies Allergy Verified 04/09/19 19:26 Vital Signs Temp 99.2 F 04/10/19 06:00 Pulse 71 04/10/19 06:00 Resp 16 04/09/19 16:46 BP 124/80 04/10/19 06:00 Pulse Ox 99 04/10/19 06:00 Intake & Output 04/09/19 04/10/19 04/10/19 18:59 06:59 18:59 Weight 64.7 kg 04/10/19 11:24 04/10/19 12:13
[2019-04-10] MEDS ORDERED: DEXTROSE 5% IV ONE ×6 (12:30→17:30)
[2019-04-10] MEDS ORDERED: ACETYLCYSTEINE IV ONE ×6 (12:30→17:30)
[2019-04-10] MEDS ORDERED: WATER IV ONE ×6 (12:30→17:30)
[2019-04-10] MEDS ORDERED: ACETYLCYSTEINE 6,000 MG/30 ML VIAL PO ONE (13:00)
[2019-04-10 16:41] VITALS: BP 155/85; TEMP 98.8
[2019-04-10] MEDS ORDERED: ACETYLCYSTEINE 6,000 MG/30 ML VIAL PO SCH (17:00)
--- NOTE | 2019-04-10 18:36 | P.MDCNMH ---
History of Present Illness H&P Date: 04/10/19 Chief Complaint: Tylenol overdose 38-year-old male with PMH of asthma, anxiety and depression was brought to the ED by his girlfriend for worsening depression and the possibility of overdose of medications. Apparently, patient held a utility knife to his neck and threatened to kill himself. Tylenol level on admission was 161.4 and 145 on repeat. Patient was admitted for further observation. His initial CMP showed no transaminitis. He was given an acetylcysteine IV during the admission and subsequently discharged to inpatient psychiatry. While admitted in inpatient psychiatry, his liver enzymes have been trending up from AST 92-267 and ALT 108- 402. His Tylenol level was repeated and down trended from 145-71.4 to within normal limits. Patient reports feeling queasy and nauseous this morning into this afternoon and vomited after taking an oral dose of acetylcysteine. He denies any headache, lower extremity edema, fever or chills, chest pain, shortness of breath or palpitations. He denies any changes in his urination or bowel habits. Review of Systems Pertinent positives and negatives as discussed in HPI, a complete review of systems was performed and all other systems are negative. Past Medical History Past Medical History: Asthma Additional Past Medical History / Comment(s): sickle cell trait. History of Any Multi-Drug Resistant Organisms: None Reported Past Surgical History: Orthopedic Surgery Additional Past Surgical History / Comment(s): left hand Past Anesthesia/Blood Transfusion Reactions: Unable to Obtain Past Psychological History: Unable to Obtain, Anxiety, Depression Smoking Status: Current every day smoker Past Alcohol Use History: None Reported Past Drug Use History: Unable to Obtain, Marijuana Additional Drug Use History / Comment(s): reports nothing but maijuana Medications and Allergies Home Medications Medication Instructions Recorded Confirmed Type Famotidine [Pepcid] 20 mg PO HS 04/08/19 04/09/19 History Allergies Allergy/AdvReac Type Severity Reaction Status Date / Time No Known Allergies Allergy Verified 04/09/19 19:26 Physical Exam Vitals: Vital Signs Temp Pulse Resp BP Pulse Ox 04/10/19 16:40 98.8 F 71 16 155/85 04/10/19 06:00 99.2 F 71 124/80 99 General: [non toxic], [no distress], [appears at stated age] Derm: [warm], [dry] Head: [atraumatic], [normocephalic], [symmetric] Eyes: [EOMI], [no lid lag], [anicteric sclera] Mouth: [no lip lesion], [mucus membranes moist] Cardiovascular: [S1S2 reg], [no murmur], [positive posterior tibial pulse bilateral], Lungs: [CTA bilateral], [no rhonchi, no rales] , [no accessory muscle use] Abdominal: [soft], [ nontender to palpation], [no guarding], [no appreciable organomegaly] Ext: [no gross muscle atrophy], [no edema], [no contractures] Neuro: [ CN II-XI grossly intact], [no focal neuro deficits] Psych: [Alert], [oriented], [appropriate affect] Cranial Nerve Examination - Cranial Nerves Cranial Nerve II- Optic: Intact Cranial Nerve III- Oculomotor: Intact Cranial Nerve IV- Trochlear: Intact Cranial Nerve V- Trigeminal: Intact Cranial Nerve - Abducens: Intact Cranial Nerve VII- Facial: Intact Cranial Nerve VIII- Auditory: Intact Cranial Nerve IX- Glossopharyngeal: Intact Cranial Nerve X- Vagus: Intact Cranial Nerve XI- Accessory: Intact Cranial Nerve XII- Hypoglossal: Intact Results CBC & Chem 7: 04/10/19 11:43 Labs: Abnormal Lab Results - Last 24 Hours (Table) 04/10/19 Range/Units 11:43 Sodium 136 L (137-145) mmol/L Glucose 117 H (74-99) mg/dL AST 267 H (17-59) U/L ALT 402 H (4-49) U/L Assessment and Plan Assessment: Acetaminophen toxicity Transaminitis Coagulopathy Elevated BP without diagnosis of hypertension Patient's initial Tylenol levels of 145 is now undetectable. He received a course of acetylcysteine IV. His liver enzymes over the last 2 days have been trending up from AST 92-267 and ALT 108-402 and INR 1.3. This is likely related to ingestion of Tylenol. We will continue acetylcysteine by mouth. CMP will be repeated tomorrow morning. Plans for liver ultrasound and GI consultation if not improved by tomorrow. Patient was noted to have an isolated BP of 155/85. We will not start the patient on any anti-hypertensive medication at this time, rather monitor his vitals and initiate medication if necessary. Psychiatry is following the patient. Thank you for this consult. Please call [facility] with any additional questions or concerns.
--- NOTE | 2019-04-11 14:29 | P.DS ---
Providers Date of admission: 04/09/19 16:09 Attending physician: Sandeep Kiran MD Consults: 04/09/19 16:17 Consult Physician Routine Consulting Provider: Johnnie Foy Consult Reason/Comments: H & P and medical care Do you want consulting provider notified?: Yes Primary care physician: Stated None - Discharge Diagnosis(es) (1) Tylenol overdose Status: Acute (2) Adjustment disorder with mixed disturbance of emotions and conduct Status: Acute (3) Elevated alanine aminotransferase (ALT) level Status: Acute (4) Cannabis use disorder, mild, abuse Status: Acute Hospital Course: He is a 38-year-old -[place] male transferred to psychiatry from medicine service with a recent history of a acetaminophen overdose He presented to Hospital involuntarily and a police academy program coordinator completed a Petition for hospitalization that read "Davis's girlfriend stated that he is recently diagnosed with cancer and was depressed. Today, he took an unknown amount of this medicine and she was able to get the bottle away from him. He then grabbed a utility knife and put it to his wrist and neck saying that he was going to anyway; no one cares. Also that he had a supplier quality manager knife and grabbed at his stomach saying that he wanted to ." His serum acetaminophen level peaked at 161.4. He was treated on medicine service for acute acetaminophen overdose with an N-acetylcytosine. He continues to deny that he attempted overdose with Tylenol. He also denied that he attempted to cut his wrist, cut his neck or step himself in the stomach. He feels that his girlfriend and "baby momma" overreacted to his distress. He apparently received a telephone call from [facility] requesting further tests to rule out liver cancer. He became distressed after this telephone call complaining that his mother and uncle both from cancer. He specifically denied that he was considering suicide or had attempted suicide. I spoke with his girlfriend yesterday and she confirmed the allegations in the Petition. She stated that he was taking "extra doses of Tylenol, could not redirect him and eventually took the medication from him and flushed the pills down the toilet. She also confirmed that he took a utility knife in a supplier quality manager knife ingestion as though he were cutting or stabbing himself. A repeat liver function tests from yesterday showed upward trend of AST and ALT. The PT and INR were also elevated (13.2 and 1.3 respectively). Poison control called the unit and recommended follow-up on his ALT and AST as they were trending up. They also recommended that he take oral NAC to lower ALT and AST. He currently denies feeling depressed or having thoughts of or suicide. He voices regret for his action but again talked about his distress after receiving a telephone call. She denied persistent anxiety that he is unable to control. He denied periods of elevated anxiety consistent with panic attack denied obsessions or compulsions. He denied experiencing periods of elevated mood or sustained irritability consistent with luciana or hypomania. He denied such psychotic symptoms as hallucinations, paranoia or confusion. He smokes marijuana but denied use of other drugs get high, help him sleep or change her mood. He alleged that he consumes ALCOHOL infrequently. We admitted him psychiatric unit involuntarily but he signed in voluntary admission once he arrived. We provided a copy and supportive psychosocial assessment. The dietitian consultant director asset completed initial physical stamina medical history. He continued to deny that he attempted suicide alleging that he inadvertently took too much Tylenol. A repeat AST and ALT showed a continued increase. The dietitian consultant medicine who recommended oral Mucomyst. When he was unable to tolerate the oral Mucomyst, medicine transferred him for IV treatment. Patient Condition at Discharge: Stable Plan - Discharge Summary Discharge Rx Participant: No New Discharge Prescriptions: No Action Famotidine [Pepcid] 20 mg PO HS Discharge Medication List Famotidine [Pepcid] 20 mg PO HS 04/08/19 [History] Activity/Diet/Wound Care/Special Instructions: Follow up with primary care physician in one week regarding high ALT and AST, from Acetaminophen overdose. Do not take any Acetaminophen for one month prior to discharge. Discharge Disposition: ADMITTED IP TO THIS HOSP
== END 2019-04-10 19:33 | disposition short-term general hospital (02) | DRG 882 ==
LOC: 3MHU 16:09
PROVIDERS: ADMIT Psychiatry & Neurology Psychiatry; ATTEND Psychiatry & Neurology Psychiatry
DX: F43.25 Adjustment disorder with mixed disturbance of emotions and conduct (principal); D57.3 Sickle-cell trait; F12.10 Cannabis abuse, uncomplicated; J45.909 Unspecified asthma, uncomplicated; T39.1X2A Poisoning by 4-Aminophenol derivatives, intentional self-harm, initial encounter; F41.9 Anxiety disorder, unspecified; F32.9 Major depressive disorder, single episode, unspecified
CPT/HCPCS: 80053; 80329

== ENCOUNTER 2019-04-10 18:41 | Observation (INO) | payer OTHER ==
[2019-04-10] MEDS ORDERED: NALOXONE 0.4 MG/ML 1 ML VIAL IV PRN (19:57)
[2019-04-10] MEDS ORDERED: ACETYLCYSTEINE IV SCH ×2 (21:00)
[2019-04-10] MEDS ORDERED: DEXTROSE 5% IV SCH ×2 (21:00)
[2019-04-10] MEDS ORDERED: WATER IV SCH ×2 (21:00)
[2019-04-10] MEDS: SODIUM CHLORIDE 0.9% 1,000 ML IV SCH (21:32)
[2019-04-11] MEDS: HEPARIN SODIUM,PORCINE 5,000 UNIT/ML 1 ML VIAL SQ SCH ×2 (00:12→08:46)
[2019-04-11 01:51] VITALS: RESP 16
[2019-04-11] MEDS: SODIUM CHLORIDE 0.9% 1,000 ML IV SCH ×2 (05:42→11:13)
[2019-04-11 08:22] LABS: Basophils % (A) 0 %; Eosinophils # (A) 0.1 k/uL (0-0.7); Eosinophils % (A) 1 %; HCT 45.7 % (39.0-53.0); HGB 15.3 gm/dL (13.0-17.5); Lymphocytes # (A) 1.5 k/uL (1.0-4.8); Lymphocytes % (A) 32 %; MCH 28.2 pg (25.0-35.0); MCHC 33.5 g/dL (31.0-37.0); MCV 84.1 fL (80.0-100.0); Mean Platelet Volume 16.1; Monocytes # (A) 0.6 k/uL (0-1.0); Monocytes % (A) 13 %; Neutrophils # (A) 2.3 k/uL (1.3-7.7); Neutrophils % (A) 52 %; Platelet Count 102 k/uL (150-450); RBC 5.43 m/uL (4.30-5.90); RDW 13.5 % (11.5-15.5); WBC 4.5 k/uL (3.8-10.6)
[2019-04-11 08:55] LABS: Large Platelets Present
[2019-04-11 08:56] LABS: Poikilocytosis (M) Present
[2019-04-11] MEDS ORDERED: NICOTINE 14MG/24HR PATCH TRANSDERM SCH (09:00)
[2019-04-11 09:53] LABS: ALT 347 U/L (4-49); AST 171 U/L (17-59); African American GFR (CKD) >90 (>60 ml/min/1.73 sqM); Albumin 3.1 g/dL (3.5-5.0); Alkaline Phosphatase 52 U/L (38-126); Anion Gap 6 mmol/L; Blood Urea Nitrogen 6 mg/dL (9-20); Calcium 8.2 mg/dL (8.4-10.2); Carbon Dioxide 23 mmol/L (22-30); Chloride 111 mmol/L (98-107); Glucose 118 mg/dL (74-99); Non-African American GFR(CKD) >90 (>60 ml/min/1.73 sqM); Sodium 140 mmol/L (137-145); Total Bilirubin 0.8 mg/dL (0.2-1.3); Total Protein 5.6 g/dL (6.3-8.2)
[2019-04-11 12:03] VITALS: BP 148/92; PULSE 97; TEMP 98.4
--- NOTE | 2019-04-11 12:17 | P.CON ---
Consult Note - . Consult date: 04/11/19 Assessment/Plan:: Clinical Problems: Intentional overdose of acetaminophen, adjustment disorder with disturbance of mood and conduct, cannabis use disorder Interim history: I reviewed the medical record and interviewed the patient. His 38-year-old , -[place] who presented to the [facility] on 04/08/2019 following an intentional overdose of Tylenol. I consulted while he was on the medicine unit where he was treated for Tylenol overdose with IV Mucomyst. He was transferred to the psychiatric unit on 04/09/2019 with a diagnosis of an intentional overdose of acetaminophen and an adjustment disorder. He has repeatedly denied that he intentionally overdosed on Tylenol and a suicide attempt. During our initial encounter she described becoming distressed after he was told they needed traditional medical tests to rule out liver cancer. He was transferred to the psychiatric unit involuntarily but agreed to the voluntary admission. During the brief time that he was on psychiatric unit he continued to maintain that he denied that he made a suicide attempt. He denied suicidal ideation, intent or plan. He denied feeling depressed or having thoughts of or suicide. He is transferred back to medicine on the psychi atric unit because of liver function tests were rising. Since his been started on IV Mucomyst his liver function tests have been decreasing. He was distressed by the continued hospitalization. He repeated that he "just wants to go home." He again denied that she attempted suicide. He denied having suicidal ideation, thoughts or plans. He denied feeling persistently depressed. He remains concerned about his physical health and the possibility that he may have liver cancer. Mental status exam: He presented as a casually groomed 38-year-old - [place] male who was pleasant on approach. He made eye contact and attended to the interview. He showed no abnormality of psychomotor activity. Her speech was spontaneous with normal rate and rhythm. His affect was dysphoric but appropriate. He denied suicidal ideation and wishes. He denied homicidal ideation. He denied feeling hopeless, helpless or worthless. He ruminated over his hospital stay in a transfer from medicine to psychiatry then back to medicine. He did not express ideas reference, paranoid ideation or delusional thoughts. His thinking was abstract and associations were coherent, logical and goal directed. He denied hallucinations and did not appear to be responding to internal stimuli. Assessment: He is distressed by the continued hospitalization but understands the need for the treatment for the immediate acetaminophen poisoning. He continues suicidal ideation, thought or plan. He is denying depressive symptoms. Plan: There is no indication for transfer back to the psychiatric unit at this time. Consult social work and refer him for outpatient mental health services. Thank you for the consult. Psychiatry will sign off on this case.
--- NOTE | 2019-04-11 12:29 | P.HPIM ---
History of Present Illness H&P Date: 04/10/19 Chief Complaint: Tylenol overdose This is a late note entry. Patient was seen on 04/10/2019. 38-year-old male with PMH of asthma, anxiety and depression was brought to the E D by his girlfriend for worsening depression and the possibility of overdose of medications. Apparently, patient held a utility knife to his neck and threatened to kill himself. Tylenol level on admission was 161.4 and 145 on repeat. Patient was admitted for further observation. His initial CMP showed no transaminitis. He was given an acetylcysteine IV during the admission and subsequently discharged to inpatient psychiatry. While admitted in inpatient psychiatry, his liver enzymes have been trending up from AST 92-267 and ALT 108- 402. His Tylenol level was repeated and down trended from 145-71.4 to within normal limits. Patient reports feeling queasy and nauseous this morning into afternoon and vomited after taking an oral dose of acetylcysteine. He denies any headache, lower extremity edema, fever or chills, chest pain, shortness of breath or palpitations. He denies any changes in his urination or bowel habits. Review of Systems Pertinent positives and negatives as discussed in HPI, a complete review of systems was performed and all other systems are negative. Past Medical History Past Medical History: Asthma Additional Past Medical History / Comment(s): sickle cell trait. History of Any Multi-Drug Resistant Organisms: None Reported Past Surgical History: Orthopedic Surgery Additional Past Surgical History / Comment(s): left hand Past Anesthesia/Blood Transfusion Reactions: Unable to Obtain Smoking Status: Current every day smoker Medications and Allergies Home Medications Medication Instructions Recorded Confirmed Type Famotidine [Pepcid] 20 mg PO HS 04/08/19 04/10/19 History Allergies Allergy/AdvReac Type Severity Reaction Status Date / Time No Known Allergies Allergy Verified 04/10/19 20:57 Physical Exam Vitals: Vital Signs Pulse Resp BP Pulse Ox 04/10/19 19:46 72 18 127/84 94 L Intake and Output 04/10/19 04/10/19 04/10/19 06:59 14:59 22:59 Other: Weight 73.482 kg General: [non toxic], [no distress], [appears at stated age] Derm: [warm], [dry] Head: [atraumatic], [normocephalic], [symmetric] Eyes: [EOMI], [no lid lag], [anicteric sclera] Mouth: [no lip lesion], [mucus membranes moist] Cardiovascular: [S1S2 reg], [no murmur], [positive posterior tibial pulse bilateral], Lungs: [CTA bilateral], [no rhonchi, no rales] , [no accessory muscle use] Abdominal: [soft], [ nontender to palpation], [no guarding], [no appreciable organomegaly] Ext: [no gross muscle atrophy], [no edema], [no contractures] Neuro: [ CN II-XI grossly intact], [no focal neuro deficits] Psych: [Alert], [oriented], [appropriate affect] Results CBC & Chem 7: 04/11/19 06:35 04/11/19 09:22 Assessment and Plan Assessment: Acetaminophen toxicity Transaminitis Coagulopathy Elevated BP without diagnosis of hypertension Patient's initial Tylenol levels of 145 is now undetectable. He received a course of acetylcysteine IV. His liver enzymes over the last 2 days have been trending up from AST 92-267 and ALT 108-402 and INR 1.3. This is likely related to ingestion of Tylenol. We will continue acetylcysteine IV. CMP will be repeated tomorrow morning. Plans for liver ultrasound and GI consultation if not improved by tomorrow. Patient was noted to have an isolated BP of 155/85. We will not start the patient on any anti-hypertensive medication at this time, rather monitor his vitals and initiate medication if necessary. Psychiatry is following the patient. DVT prophylaxis: [SCD] Discussed with: [Patient] Anticipated discharge: [1-2 days] Anticipated discharge place: [Home versus inpatient psych] A total of [45] minutes was spent on the care of this complex patient more than 50% of the time was spent in counseling and care coordination. Patient will be placed full code at this time.
== END 2019-04-11 12:25 | disposition left against medical advice (07) ==
LOC: 3SCARD 19:45 → INTOOBSV 19:45 → UNDODISIN 04-11 12:25
PROVIDERS: ADMIT Family Medicine; ATTEND Family Medicine
DX: T39.1X2A Poisoning by 4-Aminophenol derivatives, intentional self-harm, initial encounter (principal); D68.9 Coagulation defect, unspecified; F12.188 Cannabis abuse with other cannabis-induced disorder; F43.25 Adjustment disorder with mixed disturbance of emotions and conduct; D57.3 Sickle-cell trait; J45.909 Unspecified asthma, uncomplicated; R03.0 Elevated blood-pressure reading, without diagnosis of hypertension; R74.0 Nonspecific elevation of levels of transaminase and lactic acid dehydrogenase [LDH]; R11.10 Vomiting, unspecified; T48.4X5A Adverse effect of expectorants, initial encounter; F17.200 Nicotine dependence, unspecified, uncomplicated; Z79.899 Other long term (current) drug therapy
CPT/HCPCS: 80053; 85025; G0378 ×3; G0379; J0132; 96366; 96367; 96375; 96376

== ENCOUNTER 2019-09-22 09:59 | Emergency (ER) | payer BC, MEDICAID, OTHER ==
[2019-09-22 10:16] VITALS: RESP 18
--- NOTE | 2019-09-22 10:29 | ED ---
General Adult HPI - General Chief complaint: Shortness of Breath Stated complaint: SOB, sore throat Time Seen by Provider: 09/22/19 10:11 Source: patient Mode of arrival: ambulatory Limitations: no limitations - History of Present Illness Initial comments: 38-year-old male presenting for cough congestion sore throat shortness of breath. Patient states that for 2 days he has had this sensation that he cannot expand his lungs some shortness of breath with significant cough he states he has had some chills and sore throat and was concerned that he had a Covid 19 infection. Patient states that his son was recently hospitalized in [place] he is unsure what he had, or if it was Covid 19. Patient states that he has had no leg swelling, neck pain, headaches. Denies vomiting, diarrhea, abdominal pain. Patient states it feel like when he has had bronchitis in the past. Patient has no additional complaints. Upon arrival he appears nontoxic, in no distress. No respiratory distress specifically. Patiet nhas no additional complaints and denies any past medical history. - Related Data Previous Rx's Medication Instructions Recorded Azithromycin [Zithromax Z-pack] 0 mg PO DIRECTED #6 tab 09/22/19 predniSONE [Deltasone] 20 mg PO DAILY 4 Days #4 tab 09/22/19 Allergies Allergy/AdvReac Type Severity Reaction Status Date / Time No Known Allergies Allergy Verified 09/22/19 10:51 Review of Systems ROS Statement: Those systems with pertinent positive or pertinent negative responses have been documented in the HPI. ROS Other: All systems not noted in ROS Statement are negative. Past Medical History Past Medical History: Asthma Additional Past Medical History / Comment(s): sickle cell trait. History of Any Multi-Drug Resistant Organisms: None Reported Past Surgical History: Orthopedic Surgery Additional Past Surgical History / Comment(s): left hand Past Anesthesia/Blood Transfusion Reactions: Unable to Obtain Past Psychological History: No Psychological Hx Reported, Anxiety, Depression Smoking Status: Current every day smoker Past Alcohol Use History: None Reported Past Drug Use History: Marijuana General Exam - General Exam Comments Initial Comments: General: The patient is awake and alert, in no distress, and does not appear acutely ill. Eye: Pupils are equal, round and reactive to light, extra-ocular movements are intact. No nystagmus. There is normal conjunctiva bilaterally. No signs of icterus. Ears, nose, mouth and throat: There are moist mucous membranes and no oral lesions. Oropharynx nonerythematous uvula midline Neck: The neck is supple, there is no tenderness or JVD. Cardiovascular: There is a regular rate and rhythm. No murmur, rub or gallop is appreciated. Respiratory: Lungs are clear to auscultation, respirations are non-labored, breath sounds are equal. No wheezes, stridor, rales, or rhonchi. Nasal congestion. No retractions/abdominal breathing. Dry cough Musculoskeletal: Normal ROM, no tenderness. Strength 5/5. Sensation intact. Pulses equal bilaterally 2+. Neurological: A&O x 3. CN II-XII intact grossly, There are no obvious motor or sensory deficits. Coordination appears grossly intact. Speech is normal. Skin: Skin is warm and dry and no rashes or lesions are noted. Psychiatric: Cooperative, appropriate mood & affect, normal judgment. Limitations: no limitations Course Vital Signs 09/22/19 09/22/19 09/22/19 10:02 10:12 11:25 Temperature 98.4 F 97.8 F Pulse Rate 67 85 Respiratory 16 18 18 Rate Blood Pressure 125/88 163/86 O2 Sat by Pulse 98 98 Oximetry Medical Decision Making - Medical Decision Making Lungs clear. obvious URI symptoms. States similar to bronchitis feeling. CXR clear. VS within acceptable limits. At this time feel patient has upper respiratory infection will be treated azithromycin and recommend close outpatient follow-up and caution as we cannot rule out Covid 19 infection. No w ork until symptoms free. Her parameters importance of proper discussed at length patient verbalized understanding Disposition Clinical Impression: Cough, Sore throat, SOB (shortness of breath) Disposition: HOME SELF-CARE Condition: Good Instructions (If sedation given, give patient instructions): Acute Bronchitis (ED) Additional Instructions: Please use medication as discussed. Please follow-up with family doctor in the next 2 days. Please return to emergency room if the symptoms increase or worsen or for any other concerns. Prescriptions: predniSONE [Deltasone] 20 mg PO DAILY 4 Days #4 tab Azithromycin [Zithromax Z-pack] 0 mg PO DIRECTED #6 tab Is patient prescribed a controlled substance at d/c from ED?: No Referrals: Lashaun Lockwood MD [Primary Care Provider] - 1-2 days Time of Disposition: 11:16
--- NOTE | 2019-09-22 11:06 | XR ---
EXAMINATION TYPE: XR chest 2V DATE OF EXAM: 09/22/2019 COMPARISON: 09/03/2018 HISTORY: Chest pain TECHNIQUE: Frontal and lateral views of the chest are obtained. FINDINGS: There is no focal air space opacity. No evidence for pneumothorax. No pleural effusion. The cardiac silhouette size is within normal limits. The osseous structures are grossly intact. IMPRESSION: 1. No acute cardiopulmonary process.
[2019-09-22 11:26] VITALS: BP 163/86; PULSE 85; TEMP 97.8
== END 2019-09-22 11:26 | disposition home or self-care (01) ==
LOC: EC 09:59
DX: J02.9 Acute pharyngitis, unspecified (principal); F17.200 Nicotine dependence, unspecified, uncomplicated
CPT/HCPCS: 71046; 99284

== ENCOUNTER 2020-11-26 05:42 | Emergency (ER) | payer BC, OTHER ==
[2020-11-26] MEDS ORDERED: IPRATROPIUM-ALBUTEROL 3 ML NEB INHALATION STA (06:22)
--- NOTE | 2020-11-26 06:24 | ED ---
General Adult HPI - General Chief complaint: Shortness of Breath Stated complaint: MELISA Time Seen by Provider: 11/26/20 05:59 Source: patient, RN notes reviewed Mode of arrival: ambulatory Limitations: no limitations - History of Present Illness Initial comments: Patient is a 39-year-old male presented to the ED for shortness of breath. Patient states that since Sunday he and feeling under the weather with generalized fatigue and weakness cough and congestion. Patient denies any nausea vomiting diarrhea bowel movements or urination at this time. Patient states he has had increase in consumption of food. Patient reports no sick contacts to his knowledge, with no history of COVID and reports not being vaccinated. Patient does admit to smoking 1 pack daily. - Related Data Previous Rx's Medication Instructions Recorded Azithromycin [Zithromax Z-pack (6 0 mg PO DIRECTED #6 tab 09/22/19 tabs)] predniSONE [Deltasone] 20 mg PO DAILY 4 Days #4 tab 09/22/19 Allergies Allergy/AdvReac Type Severity Reaction Status Date / Time No Known Allergies Allergy Verified 11/26/20 05:46 Review of Systems ROS Statement: Those systems with pertinent positive or pertinent negative responses have been documented in the HPI. ROS Other: All systems not noted in ROS Statement are negative. Past Medical History Past Medical History: Asthma Additional Past Medical History / Comment(s): sickle cell trait. History of Any Multi-Drug Resistant Organisms: None Reported Past Surgical History: Orthopedic Surgery Additional Past Surgical History / Comment(s): left hand Past Anesthesia/Blood Transfusion Reactions: Unable to Obtain Past Psychological History: No Psychological Hx Reported, Anxiety, Depression Smoking Status: Current every day smoker Past Alcohol Use History: None Reported Past Drug Use History: Marijuana General Exam Limitations: no limitations General appearance: alert, in no apparent distress, anxious ENT exam: Present: normal exam, mucous membranes moist Respiratory exam: Present: normal lung sounds bilaterally. Absent: respiratory distress, wheezes, rales, rhonchi, stridor Cardiovascular Exam: Present: regular rate, normal rhythm, normal heart sounds. Absent: systolic murmur, diastolic murmur, rubs, gallop, clicks Neurological exam: Present: alert, oriented X3. Absent: CN II-XII intact Skin exam: Present: warm, dry, intact, normal color. Absent: rash Course Vital Signs 11/26/20 11/26/20 11/26/20 05:42 06:12 06:21 Temperature 97.2 F L Pulse Rate 86 63 Respiratory 22 20 20 Rate Blood Pressure 179/81 116/69 O2 Sat by Pulse 100 18 L Oximetry Medical Decision Making - Medical Decision Making Patient is positive for COVID-19. Patient will receive myoclonia advised we discharged in stable condition return parameters discussed. - Lab Data Lab Results 11/26/20 Range/Units 06:10 Coronavirus (PCR) Detected A (Not Detectd) Disposition Clinical Impression: COVID-19 Disposition: HOME SELF-CARE Condition: Stable Instructions (If sedation given, give patient instructions): Coronavirus Disease 2019 (COVID-19) Additional Instructions: Please return to the Emergency Department if symptoms worsen or any other concerns. Is patient prescribed a controlled substance at d/c from ED?: No Referrals: None,Stated [REFERRING] - 1-2 days Time of Disposition: 07:06
--- NOTE | 2020-11-26 06:50 | XR ---
EXAMINATION TYPE: XR chest 2V DATE OF EXAM: 11/26/2020 COMPARISON: 09/22/2019 HISTORY: Cough TECHNIQUE: FINDINGS: Heart and mediastinum are normal. Lungs are clear. Diaphragm is normal. Bony thorax appears intact. IMPRESSION: Normal chest. No change.
[2020-11-26] MEDS ORDERED: SODIUM CHLORIDE 0.9% 50 ML IVPB ONE (07:30)
[2020-11-26 07:31] VITALS: TEMP 99
[2020-11-26] MEDS ORDERED: CASIRIVIMAB (REGN10933) (EUA) 600 MG, IMDEVIMAB (REGN10987) (EUA) 600 MG in SODIUM CHLO... IVPB ONE (07:45)
[2020-11-26 09:33] VITALS: BP 122/81; PULSE 74; RESP 16
== END 2020-11-26 09:33 | disposition home or self-care (01) ==
LOC: EC 05:42
DX: U07.1 COVID-19 (principal); J45.909 Unspecified asthma, uncomplicated; F17.200 Nicotine dependence, unspecified, uncomplicated; F12.90 Cannabis use, unspecified, uncomplicated; F41.9 Anxiety disorder, unspecified; F32.9 Major depressive disorder, single episode, unspecified
CPT/HCPCS: 71046; 87635; 99285

== ENCOUNTER 2021-06-24 17:27 | Emergency (ER) | payer BC, OTHER ==
[2021-06-24 19:42] VITALS: BP 141/91; PULSE 70; RESP 18; TEMP 98.2
--- NOTE | 2021-06-24 19:45 | ED ---
General Adult HPI - General Chief complaint: Drug Screen Stated complaint: Drug screen, [facility] Time Seen by Provider: 06/24/21 19:40 Source: patient, RN notes reviewed Mode of arrival: ambulatory Limitations: no limitations - History of Present Illness Initial comments: Well-appearing 40-year-old male in no acute distress presents to the emergency room sent by his employer for a urine drug screen after the hi-low he was driving had items fall off it. Patient has no injuries. Patient states that he does smoke on a daily basis. Patient was seen in triage. -: hour(s) Severity scale (1-10): 0 Associated Symptoms: denies other symptoms Treatments Prior to Arrival: none - Related Data Previous Rx's Medication Instructions Recorded Azithromycin [Zithromax Z-pack (6 0 mg PO DIRECTED #6 tab 09/22/19 tabs)] predniSONE [Deltasone] 20 mg PO DAILY 4 Days #4 tab 09/22/19 Allergies Allergy/AdvReac Type Severity Reaction Status Date / Time No Known Allergies Allergy Verified 06/24/21 19:41 Review of Systems ROS Statement: Those systems with pertinent positive or pertinent negative responses have been documented in the HPI. ROS Other: All systems not noted in ROS Statement are negative. Past Medical History Past Medical History: Asthma Additional Past Medical History / Comment(s): sickle cell trait. History of Any Multi-Drug Resistant Organisms: None Reported Past Surgical History: Orthopedic Surgery Additional Past Surgical History / Comment(s): left hand Past Anesthesia/Blood Transfusion Reactions: Unable to Obtain Past Psychological History: No Psychological Hx Reported, Anxiety, Depression Smoking Status: Current every day smoker Past Alcohol Use History: None Reported Past Drug Use History: Marijuana General Exam Limitations: no limitations General appearance: alert, in no apparent distress Respiratory exam: Present: normal lung sounds bilaterally. Absent: respiratory distress, accessory muscle use Cardiovascular Exam: Present: regular rate Neurological exam: Present: alert, oriented X3, normal gait Psychiatric exam: Present: normal affect, normal mood Skin exam: Present: warm, dry. Absent: cyanosis, diaphoretic, pallor Course Vital Signs 06/24/21 19:40 Temperature 98.2 F Pulse Rate 70 Respiratory 18 Rate Blood Pressure 141/91 O2 Sat by Pulse 98 Oximetry Medical Decision Making - Medical Decision Making 40-year-old male presents to the emergency room sent by his employer for a urine drug screen. He denies any injuries or pain. He has no focal neurological deficits. Urine drug screen was performed patient and discharged home. Disposition Clinical Impression: Well adult exam Disposition: HOME SELF-CARE Condition: Good Is patient prescribed a controlled substance at d/c from ED?: No Referrals: None,Stated [Primary Care Provider] - 1-2 days Time of Disposition: 19:47
== END 2021-06-24 20:09 | disposition home or self-care (01) ==
LOC: EC 17:27
DX: Z00.00 Encounter for general adult medical examination without abnormal findings (principal); F17.200 Nicotine dependence, unspecified, uncomplicated; J45.909 Unspecified asthma, uncomplicated; F12.90 Cannabis use, unspecified, uncomplicated
CPT/HCPCS: 99282

== ENCOUNTER 2021-07-05 21:53 | Emergency (ER) | payer OTHER ==
[2021-07-05 22:37] VITALS: BP 156/92; PULSE 61; RESP 16; TEMP 98.2
--- NOTE | 2021-07-05 23:07 | ED ---
General Adult HPI - General Chief complaint: Drug Screen Stated complaint: [facility]-Drug screen Time Seen by Provider: 07/05/21 22:51 Source: patient Mode of arrival: ambulatory Limitations: no limitations - History of Present Illness Initial comments: Patient is a 40-year-old male presenting for drug and alcohol screen. Patient states that he was at work wheeling boxes when he bumped into a door, and his employer has required him to get tested. He has no physical complaints at this time, denies any chest pain, shortness of breath, limb pain, abdominal pain, nausea, vomiting, headache or vision or hearing changes, fever, chills. - Related Data Previous Rx's Medication Instructions Recorded Azithromycin [Zithromax Z-pack (6 0 mg PO DIRECTED #6 tab 09/22/19 tabs)] predniSONE [Deltasone] 20 mg PO DAILY 4 Days #4 tab 09/22/19 Allergies Allergy/AdvReac Type Severity Reaction Status Date / Time No Known Allergies Allergy Verified 07/05/21 22:35 Review of Systems ROS Statement: Those systems with pertinent positive or pertinent negative responses have been documented in the HPI. ROS Other: All systems not noted in ROS Statement are negative. Past Medical History Past Medical History: Asthma Additional Past Medical History / Comment(s): sickle cell trait. History of Any Multi-Drug Resistant Organisms: None Reported Past Surgical History: Orthopedic Surgery Additional Past Surgical History / Comment(s): left hand Past Anesthesia/Blood Transfusion Reactions: Unable to Obtain Past Psychological History: No Psychological Hx Reported, Anxiety, Depression Smoking Status: Current every day smoker Past Alcohol Use History: None Reported Past Drug Use History: Marijuana General Exam Limitations: no limitations General appearance: alert, in no apparent distress Head exam: Present: atraumatic, normocephalic, normal inspection Eye exam: Present: normal appearance, EOMI. Absent: scleral icterus Neck exam: Present: normal inspection Respiratory exam: Present: normal lung sounds bilaterally. Absent: respiratory distress, wheezes, rales, rhonchi, stridor Cardiovascular Exam: Present: regular rate, normal rhythm, normal heart sounds. Absent: systolic murmur, diastolic murmur, rubs, gallop, clicks Neurological exam: Present: alert, oriented X3, CN II-XII intact Psychiatric exam: Present: normal affect, normal mood Skin exam: Present: warm, dry, intact, normal color. Absent: rash Course Vital Signs 07/05/21 22:35 Temperature 98.2 F Pulse Rate 61 Respiratory 16 Rate Blood Pressure 156/92 O2 Sat by Pulse 98 Oximetry Medical Decision Making - Medical Decision Making Patient is a 40 year old male presenting for drug and alcohol screen. He was at work and states that he "bumped some boxes into a door", and his employer requir ed him to obtain drug screening. He has no physical complaints at this time. Exam is WNL. Drug and alcohol screen was sent home. Follow-up with PCP in one week. Report back to ER with any worsening symptoms. Answered all questions. Patient conveyed verbal understanding and agreed to the plan. My attending is Dr. Boateng. Disposition Clinical Impression: Encounter for drug screening Disposition: HOME SELF-CARE Condition: Good Additional Instructions: Follow-up with PCP this week. Report back to ER if any worsening symptoms. Is patient prescribed a controlled substance at d/c from ED?: No Referrals: None,Stated [Primary Care Provider] - 07/12/21 Time of Disposition: 23:06
== END 2021-07-05 23:30 | disposition home or self-care (01) ==
LOC: EC 21:53
DX: Z02.83 Encounter for blood-alcohol and blood-drug test (principal); F17.200 Nicotine dependence, unspecified, uncomplicated; J45.909 Unspecified asthma, uncomplicated
CPT/HCPCS: 99282

== ENCOUNTER 2021-11-17 16:07 | Emergency (ER) | payer BC, OTHER ==
[2021-11-17 16:14] VITALS: BP 121/81; PULSE 94; RESP 20; TEMP 98.2
--- NOTE | 2021-11-17 16:56 | ED ---
URI HPI - General Chief Complaint: Upper Respiratory Infection Stated Complaint: Sore throat,Headache,Pain,Nausea Time Seen by Provider: 11/17/21 16:43 Source: patient, RN notes reviewed Mode of arrival: ambulatory Limitations: no limitations - History of Present Illness Initial Comments: 40-year-old male presents emergency Department with chief complaint of cough and cold like symptoms patient been sick for 3 days. Patient states that his friend told him he tested positive COVID-19. Patient states that he was feeling worse yesterday because per day does have slight nausea and body aches. Patient denies any chest pain or abdominal pain headache dizziness currently. - Related Data Previous Rx's Medication Instructions Recorded Azithromycin [Zithromax Z-pack (6 0 mg PO DIRECTED #6 tab 09/22/19 tabs)] predniSONE [Deltasone] 20 mg PO DAILY 4 Days #4 tab 09/22/19 Ondansetron Odt [Zofran Odt] 4 mg PO Q8HR PRN #10 tab 11/17/21 Allergies Allergy/AdvReac Type Severity Reaction Status Date / Time No Known Allergies Allergy Verified 11/17/21 16:14 Review of Systems ROS Statement: Those systems with pertinent positive or pertinent negative responses have been documented in the HPI. ROS Other: All systems not noted in ROS Statement are negative. Past Medical History Past Medical History: Asthma Additional Past Medical History / Comment(s): sickle cell trait. History of Any Multi-Drug Resistant Organisms: None Reported Past Surgical History: Orthopedic Surgery Additional Past Surgical History / Comment(s): left hand Past Anesthesia/Blood Transfusion Reactions: Unable to Obtain Past Psychological History: No Psychological Hx Reported, Anxiety, Depression Smoking Status: Current every day smoker Past Alcohol Use History: None Reported Past Drug Use History: Marijuana General Exam Limitations: no limitations General appearance: alert, in no apparent distress Head exam: Present: atraumatic, normocephalic, normal inspection Eye exam: Present: normal appearance, PERRL, EOMI. Absent: scleral icterus, conjunctival injection, periorbital swelling ENT exam: Present: normal exam, mucous membranes moist Neck exam: Present: normal inspection, full ROM. Absent: tenderness, meningismus, lymphadenopathy Respiratory exam: Present: normal lung sounds bilaterally. Absent: respiratory distress, wheezes, rales, rhonchi, stridor Cardiovascular Exam: Present: regular rate, normal rhythm, normal heart sounds. Absent: systolic murmur, diastolic murmur, rubs, gallop, clicks GI/Abdominal exam: Present: soft, normal bowel sounds. Absent: distended, tenderness, guarding, rebound, rigid Course Vital Signs 11/17/21 16:11 Temperature 98.2 F Pulse Rate 94 Respiratory 20 Rate Blood Pressure 121/81 O2 Sat by Pulse 99 Oximetry Medical Decision Making - Medical Decision Making Patient did test positive forcovid 19 patient's vitals are stable no signs of distress. Patient will be discharged in stable condition return parameters were discussed. - Lab Data Lab Results 11/17/21 Range/Units 16:15 Coronavirus (PCR) Detected A (Not Detectd) Disposition Clinical Impression: COVID-19 Disposition: HOME SELF-CARE Condition: Stable Instructions (If sedation given, give patient instructions): COVID-19 (Coronavirus Disease 2019) (ED) Additional Instructions: Please return to the Emergency Department if symptoms worsen or any other concerns. Prescriptions: Ondansetron Odt [Zofran Odt] 4 mg PO Q8HR PRN #10 tab PRN Reason: Nausea Is patient prescribed a controlled substance at d/c from ED?: No Referrals: None,Stated [Primary Care Provider] - 1-2 days Time of Disposition: 16:56
== END 2021-11-17 17:03 | disposition home or self-care (01) ==
LOC: EC 16:07
DX: U07.1 COVID-19 (principal); F17.200 Nicotine dependence, unspecified, uncomplicated
CPT/HCPCS: 87635; 99283

== ENCOUNTER 2022-01-18 16:51 | Emergency (ER) | payer OTHER, BC ==
[2022-01-18 18:20] VITALS: TEMP 98
--- NOTE | 2022-01-18 19:40 | ED ---
Abdominal Pain HPI - General Chief Complaint: Abdominal Pain Stated Complaint: abd pain Time Seen by Provider: 01/18/22 19:22 Source: patient, RN notes reviewed Mode of arrival: ambulatory Limitations: no limitations - History of Present Illness Initial Comments: This is a pleasant 41-year-old male who has been ill for the last 3 days. Patient describing intermittent abdominal discomfort which is crampy in nature. Patient states he may have had a small amount of blood in his stool. Describing bright red blood. States this was a tiny amount. Patient also has chest congestion, cough, runny nose, nasal congestion. No known fever. Some diarrhea as well. Patient does have a history of external hemorrhoids. No headache, no fever or chills, no changes in vision or hearing, no sore throat or difficulty with speech, no neck pain, no chest pain, no abdominal pain, no nausea or vomiting, no changes in urination, no numbness or tingling, no ext remity pain, no skin rashes or lesions. Past medical, surgical, social, and family history reviewed. - Related Data Previous Rx's Medication Instructions Recorded Benzonatate [Tessalon Perles] 200 mg PO TID PRN #30 capsule 01/18/22 Dicyclomine [Bentyl] 20 mg PO QID #15 tablet 01/18/22 Allergies Allergy/AdvReac Type Severity Reaction Status Date / Time No Known Allergies Allergy Verified 01/18/22 22:27 Review of Systems ROS Statement: Those systems with pertinent positive or pertinent negative responses have been documented in the HPI. ROS Other: All systems not noted in ROS Statement are negative. Past Medical History Past Medical History: Asthma Additional Past Medical History / Comment(s): sickle cell trait. History of Any Multi-Drug Resistant Organisms: None Reported Past Surgical History: Orthopedic Surgery Additional Past Surgical History / Comment(s): left hand Past Anesthesia/Blood Transfusion Reactions: Unable to Obtain Past Psychological History: No Psychological Hx Reported, Anxiety, Depression Smoking Status: Current every day smoker Past Alcohol Use History: None Reported Past Drug Use History: Marijuana General Exam - General Exam Comments Initial Comments: Healthy-appearing 41-year-old in no acute distress. Patient does not appear to be ill or toxic. Vital signs stable, patient afebrile. Limitations: no limitations General appearance: alert, in no apparent distress Head exam: Present: atraumatic, normocephalic, normal inspection Eye exam: Present: normal appearance, PERRL, EOMI. Absent: scleral icterus, conjunctival injection, periorbital swelling ENT exam: Present: normal exam, mucous membranes moist Neck exam: Present: normal inspection. Absent: tenderness, meningismus, lymphadenopathy Respiratory exam: Present: normal lung sounds bilaterally. Absent: respiratory distress, wheezes, rales, rhonchi, stridor Cardiovascular Exam: Present: regular rate, normal rhythm, normal heart sounds. Absent: systolic murmur, diastolic murmur, rubs, gallop, clicks GI/Abdominal exam: Present: soft, normal bowel sounds. Absent: distended, tenderness, guarding, rebound, rigid Rectal exam: Present: deferred (Deferred by patient) Extremities exam: Present: normal inspection, full ROM, normal capillary refill. Absent: tenderness, pedal edema, joint swelling, calf tenderness Back exam: Present: normal inspection Neurological exam: Present: alert, oriented X3, CN II-XII intact Psychiatric exam: Present: normal affect, normal mood Skin exam: Present: warm, dry, intact, normal color. Absent: rash Course Vital Signs 01/18/22 01/18/22 18:18 22:24 Temperature 98 F Pulse Rate 77 78 Respiratory 20 18 Rate Blood Pressure 116/77 128/86 O2 Sat by Pulse 99 98 Oximetry - Reevaluation(s) Reevaluation #1: 01/18/22 21:48 Patient reevaluated. Repeat abdominal examination reveals significant tenderness in the left lower quadrant. Computed tomography scan ordered to rule out diverticulitis versus other infectious versus inflammatory etiology. Reevaluation #2: 01/18/22 22:47 Medical record is reviewed Symptoms are improved here in the emergency department Patient is informed of results and questions answered Patient in no distress Reevaluation #3: 01/18/22 23:01 Patient did not want to wait for the urinalysis or the COVID-19 test. I suspect there was only one swab sent up which showed a negative influenza test. I did call the lab and they stated that they did not have a COVID-19 swab. I suspect the patient has a viral illness any way. We discussed conservative therapy. CT scanning was negative for acute pathology. Patient in no distress at discharge. Medical Decision Making - Medical Decision Making Differential diagnosis, acute bronchitis, upper respiratory infection with cough, viral versus bacterial etiology. Patient does have abdominal pain as well. Differential would include diverticulitis, enteritis, does not appear to be consistent with genitourinary disease. COVID-19, influenza, other viral etiology such as RSV, adenovirus or rhinovirus. Does not appear to be consistent with cardiac disease. Patient reevaluated. Repeat abdominal examination reveals significant tenderness in the left lower quadrant. Computed tomography scan ordered to rule out diverticulitis versus other infectious versus inflammatory etiology. Suspect the patient's etiology is related to viral illness. Laboratory diagnosis are essentially unremarkable. CT scanning did not show any evidence of acute pathology. All findings discussed with the patient. CBC, CMP were normal. Patient deferred urinalysis and COVID-19 testing. Patient was told to return to the ER for any signs or symptoms worsen. Told to return immediately if any other problems arise. All questions answered. Treatment plan discussed. Patient in agreement Every effort has been made to ensure accuracy of this dictation. However, due to the limitations of electronic medical records and dictation devices, errors in charting still occur. Supervising physician Dr. Prabhakar - Lab Data Result diagrams: 01/18/22 20:59 01/18/22 20:59 Lab Results 01/18/22 01/18/22 01/18/22 Range/Units 20:50 20:59 20:59 WBC 4.5 (3.8-10.6) k/uL RBC 5.44 (4.30-5.90) m/uL Hgb 16.3 (13.0-17.5) gm/dL Hct 46.2 (39.0-53.0) % MCV 84.9 (80.0-100.0) fL MCH 30.0 (25.0-35.0) pg MCHC 35.3 (31.0-37.0) g/dL RDW 13.3 (11.5-15.5) % Plt Count 102 L (150-450) k/uL MPV 14.6 Neutrophils % 39 % Lymphocytes % 44 % Monocytes % 9 % Eosinophils % 6 % Basophils % 1 % Neutrophils # 1.7 (1.3-7.7) k/uL Lymphocytes # 2.0 (1.0-4.8) k/uL Monocytes # 0.4 (0-1.0) k/uL Eosinophils # 0.3 (0-0.7) k/uL Basophils # 0.0 (0-0.2) k/uL Manual Slide Review Performed Large Platelets Present RBC Morphology Normal Sodium 138 (137-145) mmol/L Potassium 4.3 (3.5-5.1) mmol/L Chloride 108 H (98-107) mmol/L Carbon Dioxide 26 (22-30) mmol/L Anion Gap 4 mmol/L BUN 10 (9-20) mg/dL Creatinine 0.70 (0.66-1.25) mg/dL Est GFR (CKD-EPI)AfAm >90 (>60 ml/min/1.73 sqM) Est GFR (CKD-EPI)NonAf >90 (>60 ml/min/1.73 sqM) Glucose 97 (74-99) mg/dL Calcium 8.9 (8.4-10.2) mg/dL Total Bilirubin 0.3 (0.2-1.3) mg/dL AST 30 (17-59) U/L ALT 29 (4-49) U/L Alkaline Phosphatase 61 (38-126) U/L Total Protein 6.6 (6.3-8.2) g/dL Albumin 3.9 (3.5-5.0) g/dL Lipase 235 (23-300) U/L Influenza Type A RNA Not Detected (Not Detectd) Influenza Type B (PCR) Not Detected (Not Detectd) - Radiology Data Radiology results: report reviewed, image reviewed Independent interpretation of the abdominal series and computed tomography scan abdomen and pelvis without contrast read by me reveals no evidence of acute pathology. Per radiology, computed tomography scan shows nonobstructing right renal calculus with a few sigmoid diverticula, no evidence of diverticulitis. Disposition Clinical Impression: Acute bronchitis, Acute viral syndrome, Acute diarrhea Disposition: HOME SELF-CARE Condition: Stable Instructions (If sedation given, give patient instructions): Gastroenteritis (ED), Acute Bronchitis (ED) Additional Instructions: Follow-up with your regular physician as directed. Return to the ER immediately if any symptoms worsen, new symptoms arise, or any other problems develop. Prescriptions: Dicyclomine [Bentyl] 20 mg PO QID #15 tablet Benzonatate [Tessalon Perles] 200 mg PO TID PRN #30 capsule PRN Reason: Cough Is patient prescribed a controlled substance at d/c from ED?: No Referrals: None,Stated [Primary Care Provider] - 1-2 days Time of Disposition: 22:59
--- NOTE | 2022-01-18 20:24 | XR ---
EXAMINATION TYPE: XR abdomen acute w cxr DATE OF EXAM: 01/18/2022 8:09 PM INDICATION: Patient age:Male; 41 years old; Reason for study: cough, abd pain; COMPARISON: None. TECHNIQUE: Two radiographic views of the abdomen (upright and supine) and a frontal chest radiograph were obtained. FINDINGS CHEST: Lungs/Pleura: The lungs are clear. There is no evidence of pleural effusion, focal consolidation or p neumothorax. Mediastinum: Unremarkable. Vasculature: Normal. Heart: Normal in size. Musculoskeletal: The osseous structures are intact. Other findings: No significant. FINDINGS ABDOMEN: Bowel gas pattern: Normal without dilated loops of small or large bowel. Fecal material and gas are d emonstrated throughout the colon and rectum. Abnormal calcifications: None. Musculoskeletal: Normal. Other: None. IMPRESSION: 1. No radiographic evidence for acute abdominal process. 2. No acute cardiopulmonary process
[2022-01-18 21:12] LABS: ALT 29 U/L (4-49); AST 30 U/L (17-59); African American GFR (CKD) >90 (>60 ml/min/1.73 sqM); Albumin 3.9 g/dL (3.5-5.0); Alkaline Phosphatase 61 U/L (38-126); Anion Gap 4 mmol/L; Blood Urea Nitrogen 10 mg/dL (9-20); Calcium 8.9 mg/dL (8.4-10.2); Carbon Dioxide 26 mmol/L (22-30); Chloride 108 mmol/L (98-107); Glucose 97 mg/dL (74-99); Lipase 235 U/L (23-300); Non-African American GFR(CKD) >90 (>60 ml/min/1.73 sqM); Potassium 4.3 mmol/L (3.5-5.1); Sodium 138 mmol/L (137-145); Total Bilirubin 0.3 mg/dL (0.2-1.3); Total Protein 6.6 g/dL (6.3-8.2)
[2022-01-18 21:24] LABS: Basophils % (A) 1 %; Eosinophils # (A) 0.3 k/uL (0-0.7); Eosinophils % (A) 6 %; HCT 46.2 % (39.0-53.0); HGB 16.3 gm/dL (13.0-17.5); Lymphocytes % (A) 44 %; MCHC 35.3 g/dL (31.0-37.0); MCV 84.9 fL (80.0-100.0); Mean Platelet Volume 14.6; Monocytes # (A) 0.4 k/uL (0-1.0); Monocytes % (A) 9 %; Neutrophils # (A) 1.7 k/uL (1.3-7.7); Neutrophils % (A) 39 %; Platelet Count 102 k/uL (150-450); RBC 5.44 m/uL (4.30-5.90); RDW 13.3 % (11.5-15.5); WBC 4.5 k/uL (3.8-10.6)
[2022-01-18 21:45] LABS: Large Platelets Present; RBC Morphology Normal
[2022-01-18] MEDS ORDERED: ACETAMINOPHEN TAB 500 MG TAB PO STA (21:47)
[2022-01-18 22:29] VITALS: BP 128/86; PULSE 78; RESP 18
--- NOTE | 2022-01-18 22:41 | CT ---
EXAMINATION TYPE: CT abdomen pelvis wo con DATE OF EXAM: 01/18/2022 COMPARISON: None HISTORY: Left lower quadrant abdominal pain CT DLP: 421.3 mGycm Automated exposure control for dose reduction was used. Images obtained from the diaphragm to the floor of the pelvis with no contrast. The lung bases are clear. No pleural effusion. Heart size is normal. No pericardial effusion there is 2 cm cyst in the anterior right lobe of the li letty. There is 1 cm cyst lateral inferior right lobe of the liver. The spleen is intact. No pancreatic mass. The stomach is intact. There is no adrenal mass. Kidneys have normal size. There is 1 cm calculus lateral right kidney. No h ydronephrosis. Ureters are not dilated. No retroperitoneal adenopathy. Bladder distends smoothly. No inguinal hernia. No free fluid in the pelvis. No pelvic mass. There are some sigmoid diverticula. No diverticulitis. The appendix is posterior and lateral and appears normal. There is no mesenteric edema. No ascites or free air. No sign of a bowel obstruction. The lumbar vert ebrae have normal alignment. No compression fracture. There is posterior mild disc herniation at L5-S 1 with calcification. The bony pelvis is intact. The hip joints are intact. IMPRESSION: Nonobstructing right renal calculus. There are a few sigmoid diverticula. No diverticulitis.
[2022-01-18] MEDS ORDERED: DICYCLOMINE 20 MG TAB PO STA (22:54)
[2022-01-18 23:14] LABS: Appearance,Urine Clear (Clear); Bilirubin,Urine Negative (Negative); Blood,Urine Negative (Negative); Color,Urine Light Yellow; Glucose,Urine (UA) Negative (Negative); Ketones,Urine Negative (Negative); Leukocyte Esterase,Urine Negative (Negative); Nitrite,Urine Negative (Negative); PH, Urine 5.5 (5.0-8.0); Protein,Urine Negative (Negative); Specific Gravity,Urine 1.009 (1.001-1.035); Urobilinogen,Urine <2.0 mg/dL (<2.0)
== END 2022-01-18 23:04 | disposition home or self-care (01) ==
LOC: EC 16:51
DX: J20.8 Acute bronchitis due to other specified organisms (principal); R19.7 Diarrhea, unspecified; J45.909 Unspecified asthma, uncomplicated; F41.9 Anxiety disorder, unspecified; F32.A Depression, unspecified; F17.200 Nicotine dependence, unspecified, uncomplicated; F12.90 Cannabis use, unspecified, uncomplicated
CPT/HCPCS: 36415; 74022; 74176; 80053; 81003; 83690; 85025; 87502; 99284